=== PATIENT | female | born 1965 | race Caucasian/White ===

== ENCOUNTER → 2016-07-30 | Outpatient (CLI) | payer OTHER ==
[~2016-07-30] VITALS: Ht 170.2 cm; Wt 87.5 kg
[~2016-07-30] MED LIST: ABIL5TAB OR; ABIL5TAB5 PO; Arimidex PO; BENZ2TA PO; Buspar PO; CALCTAB7 PO; CHLO200T OR; CITA20TA4 PO; DEPA250T2 OR; DEPA500T2 PO; Depakote PO; KLON1TAB OR; Klonopin PO; LATA5OPD OU; LIDOCAINE 2% INJ 100 MG/5 ML SDV (FOR ANES.) As Ordered ONE; MULT1TAB10 PO; NEUR800T OR; NS 1,000 ML IV SCH; OYST500T76 OR; PROPOFOL 200 MG/20 ML VIAL As Ordered ONE; REQU2TAB3 OR; VITA400D3 PO; [UNRECOGNIZED DRUG - OTHER]; arimidex
--- NOTE | 2016-07-30 14:03 | ROOR ---
Patient Name: Zaynab Tejada Procedure Date: 07/30/2016 1:44 PM Date of : 1965 Age: 51 Room: LTAC, [facility]IN [facility] Gender: Female Note Status: Finalized Procedure: Colonoscopy Indications: Screening for colorectal malignant neoplasm Providers: Marco FRANCIS MD Referring MD: Jason Parra MD Requesting Provider: Medicines: Monitored Anesthesia Care Complications: No immediate complications. Procedure: Pre-Anesthesia Assessment: - The heart rate, respiratory rate, oxygen saturations, blood pressure, adequacy of pulmonary ventilation, and response to care were monitored throughout the procedure. The Colonoscope was introduced through the anus and advanced to the cecum, identified by appendiceal orifice and ileocecal valve. The colonoscopy was performed without difficulty. The patient tolerated the procedure well. The quality of the bowel preparation was good. Findings: The perianal and digital rectal examinations were normal. A 4 mm polyp was found in the sigmoid colon. The polyp was flat. The polyp was removed with a cold snare. Resection and retrieval were complete. Small Internal Hemorrhoids. The exam was otherwise without abnormality on direct and retroflexion views. Impression: - One 4 mm polyp in the sigmoid colon, removed with a cold snare. Resected and retrieved. - Small Internal Hemorrhoids. - The examination was otherwise normal on direct and retroflexion views. Recommendation: - Telephone endoscopist for pathology results in 2 weeks. - If the pathology report reveals adenomatous tissue, then repeat the colonoscopy for surveillance in 5 years. - If the pathology report indicates hyperplastic polyp, then repeat colonoscopy for screening purposes in 10 years. Marco Francis MD Marco FRANCIS MD 07/30/2016 2:02:45 PM This report has been signed electronically. Number of Addenda: 0 Note Initiated On: 07/30/2016 1:44 PM Estimated Blood Loss: Estimated blood loss: none.
[2016-07-30 14:25] VITALS: BP 125/70
== END | disposition home or self-care (01) ==
LOC: M OPP 11:19
PROVIDERS: ATTEND Internal Medicine Gastroenterology
DX: Z12.11 Encounter for screening for malignant neoplasm of colon (principal); D12.5 Benign neoplasm of sigmoid colon; K64.8 Other hemorrhoids; F31.9 Bipolar disorder, unspecified; Z85.3 Personal history of malignant neoplasm of breast; Z92.3 Personal history of irradiation; Z92.21 Personal history of antineoplastic chemotherapy; Z90.13 Acquired absence of bilateral breasts and nipples; Z80.9 Family history of malignant neoplasm, unspecified; Z88.8 Allergy status to other drugs, medicaments and biological substances; Z88.0 Allergy status to penicillin; Z79.899 Other long term (current) drug therapy

== ENCOUNTER → 2016-11-03 | Outpatient (REF) | payer MEDICAID, OTHER ==
[~2016-11-03] MED LIST changes: -LIDOCAINE 2% INJ 100 MG/5 ML SDV (FOR ANES.) As Ordered ONE; -NS 1,000 ML IV SCH; -PROPOFOL 200 MG/20 ML VIAL As Ordered ONE
[2016-11-03 12:20] LABS: ALBUMIN 3.9 GM/DL (3.2-5.2); ALBUMIN/GLOBULIN RATIO 1.18 (1.00-1.93); ALKALINE PHOSPHATASE 65 U/L (45-117); ALT/SGPT 20 U/L (12-78); ANION GAP 5 MEQ/L (8-16); AST/SGOT 14 U/L (15-37); BILIRUBIN,TOTAL 0.6 MG/DL (0.2-1.0); BLOOD UREA NITROGEN 10 MG/DL (7-18); CARBON DIOXIDE LEVEL 31 MEQ/L (21-32); CHLORIDE LEVEL 98 MEQ/L (98-107); CHOLESTEROL LEVEL 250 MG/DL (<200); CREATININE FOR GFR 0.68 MG/DL (0.55-1.02); GLOMERULAR FILTRATION RATE > 60.0 (>51); GLUCOSE, FASTING 96 MG/DL (70-105); POTASSIUM SERUM 4.4 MEQ/L (3.5-5.1); SODIUM LEVEL 134 MEQ/L (136-145); TOTAL PROTEIN 7.2 GM/DL (6.4-8.2); TRIGLYCERIDES LEVEL 151 MG/DL (<150)
== END ==
LOC: M LABDRAW1 11:04
PROVIDERS: ATTEND Family Medicine
DX: Z00.00 Encounter for general adult medical examination without abnormal findings (principal)

== ENCOUNTER → 2016-11-17 | Outpatient (REF) | payer MEDICAID | LOC: M LAB REF 16:51 | PROVIDERS: ATTEND Internal Medicine Medical Oncology | DX: C50.019 Malignant neoplasm of nipple and areola, unspecified female breast (principal) ==

== ENCOUNTER → 2017-05-27 | Outpatient (REF) | payer OTHER ==
[2017-05-27 18:53] LABS: FERRITIN 58 NG/ML (8-252); IRON (FE) 64 UG/DL (50-170); PERCENT SATURATION 20.4 % (13.2-45.0); TOTAL IRON BINDING CAPACITY 313 UG/DL (250-450)
[2017-05-28 11:48] LABS: CA15-3 ANTIGEN 6.3 U/ML (<32.4)
== END ==
LOC: M LAB REF 17:26
DX: C50.919 Malignant neoplasm of unspecified site of unspecified female breast (principal)
CPT/HCPCS: 83550

== ENCOUNTER 2017-06-08 08:52 | Outpatient (RCR) | payer OTHER | END 2017-06-23 | LOC: M PT 08:52 | DX: Z51.89 Encounter for other specified aftercare (principal); I89.0 Lymphedema, not elsewhere classified | CPT/HCPCS: 97140 ==

== ENCOUNTER 2017-06-24 16:28 | Outpatient (RCR) | payer OTHER | END 2017-07-21 | LOC: M PT 06-25 15:40 | DX: Z51.89 Encounter for other specified aftercare (principal); I89.0 Lymphedema, not elsewhere classified; Z85.3 Personal history of malignant neoplasm of breast | CPT/HCPCS: 97140 ==

== ENCOUNTER → 2017-11-18 | Outpatient (REF) | payer OTHER, MEDICAID ==
[2017-11-18 16:13] LABS: BASO % 0.4 % (0.0-1.0); EOS # 0.1 10^3/uL (0.0-0.50); EOS % 1.7 % (0.0-3.0); HEMATOCRIT 36.3 % (36.0-47.0); HEMOGLOBIN 12.3 g/dl (12.0-15.5); IMMATURE GRANULOCYTE % 0.4 % (0-3.0); LYMPH # 1.9 10^3/uL (1.5-4.5); LYMPH % 36.1 % (24.0-44.0); MEAN CORPUSCULAR HEMOGLOBIN 29.6 pg (27.0-33.0); MEAN CORPUSCULAR HGB CONC 33.9 g/dl (32.0-36.5); MEAN CORPUSCULAR VOLUME 87.3 fl (80.0-96.0); MONO # 0.7 10^3/uL (0.0-0.8); MONO % 12.8 % (0.0-5.0); NEUTROPHILS # 2.6 10^3/uL (1.8-7.7); NEUTROPHILS % 48.6 % (36.0-66.0); PLATELET COUNT, AUTOMATED 190 10^3/uL (150-450); RED BLOOD COUNT 4.16 10^6/uL (4.00-5.40); RED CELL DISTRIBUTION WIDTH 13.1 % (11.5-14.5); WHITE BLOOD COUNT 5.2 10^3/uL (4.0-10.0)
[2017-11-18 16:48] LABS: ALBUMIN 3.6 GM/DL (3.2-5.2); ALBUMIN/GLOBULIN RATIO 0.95 (1.00-1.93); ALKALINE PHOSPHATASE 59 U/L (45-117); ALT/SGPT 23 U/L (12-78); ANION GAP 9 MEQ/L (8-16); AST/SGOT 12 U/L (7-37); BILIRUBIN,TOTAL 0.5 MG/DL (0.2-1.0); BLOOD UREA NITROGEN 16 MG/DL (7-18); CALCIUM LEVEL 8.8 MG/DL (8.5-10.1); CARBON DIOXIDE LEVEL 30 MEQ/L (21-32); CHLORIDE LEVEL 102 MEQ/L (98-107); CREATININE FOR GFR 0.65 MG/DL (0.55-1.30); GLOMERULAR FILTRATION RATE > 60.0 (>51); GLUCOSE, FASTING 106 MG/DL (70-100); POTASSIUM SERUM 4.4 MEQ/L (3.5-5.1); SODIUM LEVEL 141 MEQ/L (136-145); TOTAL PROTEIN 7.4 GM/DL (6.4-8.2); VALPROIC ACID (DEPAKOTE) 71.5 UG/ML (50.0-100.0)
== END ==
LOC: M LABDRAW1 15:49
DX: R53.83 Other fatigue (principal)

== ENCOUNTER → 2017-11-25 | Outpatient (REF) | payer OTHER, MEDICAID ==
[2017-11-25 16:45] LABS: RETIC HEMOGLOBIN EQUIVALENT 34.5 pg (24-36); RETICULOCYTE # 66.1 10^9/L (17-77); RETICULOCYTE % 1.7 % (0.5-1.5)
[2017-11-25 17:05] LABS: FERRITIN 48 NG/ML (8-252); IRON (FE) 77 UG/DL (50-170); PERCENT SATURATION 21.5 % (13.2-45.0); TOTAL IRON BINDING CAPACITY 358 UG/DL (250-450); TOTAL PROTEIN 7.4 GM/DL (6.4-8.2)
[2017-11-26 15:09] LABS: CA15-3 ANTIGEN 6.6 U/ML (<32.4)
[2017-11-30 11:28] LABS: ALBUMIN 4.47 GM/DL (3.29-5.55); ALBUMIN % 60.4 % (55.8-66.1); ALPHA-1-GLOBULIN % 3.2 % (2.9-4.9); ALPHA-1-GLOBULINS 0.24 GM/DL (0.17-0.41); ALPHA-2-GLOBULINS 0.57 GM/DL (0.42-0.99); ALPHA-2-GLOBULINS % 7.7 % (7.1-11.8)
[2017-11-30 11:29] LABS: BETA-1-GLOBULINS 0.52 GM/DL (0.28-0.60); BETA-2-GLOBULINS % 5.4 % (3.2-6.5); GAMMA GLOBULIN % 16.3 % (11.1-18.8); GAMMA GLOBULINS 1.21 GM/DL (0.65-1.58)
== END ==
LOC: M LAB REF 16:27
DX: Z85.3 Personal history of malignant neoplasm of breast (principal)

== ENCOUNTER → 2017-12-06 | Outpatient (REF) | payer OTHER, MEDICAID | LOC: M LAB REF 13:41 | DX: Z85.3 Personal history of malignant neoplasm of breast (principal) | CPT/HCPCS: 82270 ==

== ENCOUNTER → 2017-12-07 | Outpatient (REF) | payer OTHER, MEDICAID | LOC: M LAB REF 13:49 | DX: Z85.3 Personal history of malignant neoplasm of breast (principal) ==

== ENCOUNTER → 2017-12-10 | Outpatient (REF) | payer OTHER, MEDICAID | LOC: M LAB REF 13:19 | DX: Z85.3 Personal history of malignant neoplasm of breast (principal) | CPT/HCPCS: 82270 ==

== ENCOUNTER → 2017-12-28 | Outpatient (REF) | payer OTHER, MEDICAID ==
[2017-12-28 19:06] LABS: BASO % 0.4 % (0.0-1.0); EOS # 0.1 10^3/uL (0.0-0.50); EOS % 1.5 % (0.0-3.0); HEMATOCRIT 35.8 % (36.0-47.0); HEMOGLOBIN 12.1 g/dl (12.0-15.5); IMMATURE GRANULOCYTE % 0.4 % (0-3.0); LYMPH # 1.8 10^3/uL (1.5-4.5); LYMPH % 33.1 % (24.0-44.0); MEAN CORPUSCULAR HEMOGLOBIN 29.5 pg (27.0-33.0); MEAN CORPUSCULAR HGB CONC 33.8 g/dl (32.0-36.5); MEAN CORPUSCULAR VOLUME 87.3 fl (80.0-96.0); MONO # 0.6 10^3/uL (0.0-0.8); MONO % 11.5 % (0.0-5.0); NEUTROPHILS # 2.9 10^3/uL (1.8-7.7); NEUTROPHILS % 53.1 % (36.0-66.0); PLATELET COUNT, AUTOMATED 194 10^3/uL (150-450); RED CELL DISTRIBUTION WIDTH 12.9 % (11.5-14.5); WHITE BLOOD COUNT 5.5 10^3/uL (4.0-10.0)
[2017-12-28 19:40] LABS: ALBUMIN 3.7 GM/DL (3.2-5.2); ALBUMIN/GLOBULIN RATIO 1.06 (1.00-1.93); ALKALINE PHOSPHATASE 55 U/L (45-117); ALT/SGPT 58 U/L (12-78); ANION GAP 7 MEQ/L (8-16); AST/SGOT 30 U/L (7-37); BILIRUBIN,TOTAL 0.4 MG/DL (0.2-1.0); BLOOD UREA NITROGEN 15 MG/DL (7-18); CALCIUM LEVEL 9.2 MG/DL (8.5-10.1); CARBON DIOXIDE LEVEL 31 MEQ/L (21-32); CHLORIDE LEVEL 103 MEQ/L (98-107); CREATININE FOR GFR 0.68 MG/DL (0.55-1.30); GLOMERULAR FILTRATION RATE > 60.0 (>51); GLUCOSE, FASTING 133 MG/DL (70-100); POTASSIUM SERUM 4.4 MEQ/L (3.5-5.1); SODIUM LEVEL 141 MEQ/L (136-145); TOTAL PROTEIN 7.2 GM/DL (6.4-8.2); VALPROIC ACID (DEPAKOTE) 65.3 UG/ML (50.0-100.0)
== END ==
LOC: M LABDRAW1 17:37
DX: R53.83 Other fatigue (principal)

== ENCOUNTER 2018-01-17 15:11 | Outpatient (RCR) | payer OTHER | END 2018-01-21 | LOC: M PT 15:11 | DX: Z51.89 Encounter for other specified aftercare (principal); I89.0 Lymphedema, not elsewhere classified; Z85.3 Personal history of malignant neoplasm of breast | CPT/HCPCS: 97162 ==

== ENCOUNTER → 2018-01-27 | Outpatient (REF) | payer OTHER | LOC: M WUC 13:02 | DX: N39.0 Urinary tract infection, site not specified (principal) ==

== ENCOUNTER → 2018-02-02 | Outpatient (CLI) | payer OTHER | LOC: M SLEEP 19:21 | DX: G47.30 Sleep apnea, unspecified (principal) | CPT/HCPCS: 95810 ==

== ENCOUNTER → 2018-02-10 | Outpatient (CLI) | payer OTHER ==
[2018-02-10 18:29] LABS: FREE T3 2.6 PG/ML (2.2-4.0); FREE T4 0.71 NG/DL (0.76-1.46)
== END ==
LOC: M LAB 16:14
DX: E07.9 Disorder of thyroid, unspecified (principal)
CPT/HCPCS: 84443

== ENCOUNTER → 2018-02-10 | Outpatient (CLI) | payer OTHER | LOC: M LAB 16:04 | DX: R19.4 Change in bowel habit (principal) ==

== ENCOUNTER → 2018-02-11 | Outpatient (CLI) | payer OTHER ==
[~2018-02-11] MED LIST changes: -ABIL5TAB OR; -ABIL5TAB5 PO; -Arimidex PO; -BENZ2TA PO; -Buspar PO; -CALCTAB7 PO; -CHLO200T OR; -CITA20TA4 PO; -DEPA250T2 OR; -DEPA500T2 PO; -Depakote PO; +E-Z-GAS II EFFERVESCENT PACKET (SODIUM BICARB./CITRIC ACID/SIMETHICONE) As Ordered; +E-Z-HD 98% w/w 340GM SUSP BTL As Ordered; +E-Z-PAQUE 96% w/w SUSP 176GM BTL As Ordered; -KLON1TAB OR; -Klonopin PO; -LATA5OPD OU; -MULT1TAB10 PO; -NEUR800T OR; -OYST500T76 OR; -REQU2TAB3 OR; -VITA400D3 PO; -[UNRECOGNIZED DRUG - OTHER]; -arimidex
== END ==
LOC: M RAD 08:58
DX: R13.10 Dysphagia, unspecified (principal); K21.9 Gastro-esophageal reflux disease without esophagitis
CPT/HCPCS: 74220

== ENCOUNTER → 2018-02-15 | Outpatient (REF) | payer OTHER | LOC: M LAB REF 13:38 | DX: R19.4 Change in bowel habit (principal) ==

== ENCOUNTER → 2018-03-09 | Outpatient (CLI) | payer OTHER | LOC: M SLEEP 19:16 | DX: G47.33 Obstructive sleep apnea (adult) (pediatric) (principal) | CPT/HCPCS: 95811 ==

== ENCOUNTER → 2018-03-12 | Outpatient (REF) | payer OTHER | LOC: M LAB 12:37 | DX: A04.72 Enterocolitis due to Clostridium difficile, not specified as recurrent (principal) ==

== ENCOUNTER → 2018-03-22 | Outpatient (CLI) | payer OTHER, MEDICAID ==
[2018-03-22 16:30] LABS: FREE T3 2.5 PG/ML (2.2-4.0); FREE T4 0.58 NG/DL (0.76-1.46)
== END ==
LOC: M LAB 15:27
DX: E07.9 Disorder of thyroid, unspecified (principal)
CPT/HCPCS: 84443

== ENCOUNTER 2018-03-28 11:35 | Day surgery (SDC) | payer OTHER ==
[2018-03-28] MEDS ORDERED: PROPOFOL 200 MG/20 ML VIAL As Ordered (12:49)
[2018-03-28] MEDS ORDERED: LIDOCAINE 2% INJ 100 MG/5 ML SDV (FOR ANES.) As Ordered (12:57)
[2018-03-28] MEDS: NS 1,000 ML IV (14:55)
[2018-03-29] MEDS ORDERED: NS 1,000 ML IV (06:00)
== END 2018-03-28 14:56 | disposition home or self-care (01) ==
LOC: M OPP 11:35
DX: K63.5 Polyp of colon (principal); R13.10 Dysphagia, unspecified; R19.7 Diarrhea, unspecified; E03.9 Hypothyroidism, unspecified; D64.9 Anemia, unspecified; F31.9 Bipolar disorder, unspecified; F41.9 Anxiety disorder, unspecified; G47.30 Sleep apnea, unspecified; H40.9 Unspecified glaucoma; Z79.899 Other long term (current) drug therapy; Z90.49 Acquired absence of other specified parts of digestive tract; Z98.890 Other specified postprocedural states; Z85.3 Personal history of malignant neoplasm of breast; Z92.21 Personal history of antineoplastic chemotherapy; Z92.3 Personal history of irradiation; Z88.8 Allergy status to other drugs, medicaments and biological substances; Z88.0 Allergy status to penicillin; Z88.1 Allergy status to other antibiotic agents; Z90.12 Acquired absence of left breast and nipple; Z83.3 Family history of diabetes mellitus; Z83.79 Family history of other diseases of the digestive system; Z82.49 Family history of ischemic heart disease and other diseases of the circulatory system
CPT/HCPCS: 45385

== ENCOUNTER → 2018-05-05 | Outpatient (CLI) | payer OTHER ==
[2018-05-05 13:42] LABS: FREE T3 2.5 PG/ML (2.2-4.0); FREE T4 0.66 NG/DL (0.76-1.46)
== END ==
LOC: M LAB 12:39
DX: E07.9 Disorder of thyroid, unspecified (principal)
CPT/HCPCS: 84443

== ENCOUNTER 2018-07-11 13:38 | Outpatient (RCR) | payer OTHER ==
[~2018-07-11 13:38] MED LIST changes: +ABIL1TAB11 PO; +ABIL5TAB OR; +Arimidex PO; +BENZ2TAB5 PO; +BRIM0.2S13 OU; +Buspar PO; +CALCTAB7 PO; +CHLO200T OR; +CITA20TA4 PO; +DEPA250T2 OR; +DEPA250T2 PO; +DEPA500T2 PO; +DIFI200T PO; +Depakote PO; -E-Z-GAS II EFFERVESCENT PACKET (SODIUM BICARB./CITRIC ACID/SIMETHICONE) As Ordered; -E-Z-HD 98% w/w 340GM SUSP BTL As Ordered; -E-Z-PAQUE 96% w/w SUSP 176GM BTL As Ordered; +FLUO0.0119 OT; +KLON1TAB OR; +Klonopin PO; +LATA5OPD OU; +LEVO25TA5 PO; +MULT1TAB10 PO; +NEUR800T OR; +OYST500T76 OR; +RANI150C PO; +REQU2TAB3 OR; +VITA-110 PO; +VITA400D PO; +XALA0.007 OU; +[UNRECOGNIZED DRUG - OTHER]; +arimidex
== END 2018-07-21 ==
LOC: M PT 13:38
PROVIDERS: ATTEND Internal Medicine Medical Oncology
DX: I89.0 Lymphedema, not elsewhere classified (principal)

== ENCOUNTER → 2018-08-02 | Outpatient (CLI) | payer OTHER, MEDICAID ==
[2018-08-02 13:05] LABS: FREE T3 2.5 PG/ML (2.2-4.0); FREE T4 0.76 NG/DL (0.76-1.46); THYROID STIMULATING HORMONE 2.35 uIU/ML (0.358-3.740)
== END ==
LOC: M LAB 11:36
PROVIDERS: ATTEND Family Medicine
DX: E07.9 Disorder of thyroid, unspecified (principal)

== ENCOUNTER → 2018-09-08 | Outpatient (CLI) | payer OTHER ==
[~2018-09-08] MED LIST changes: -CITA20TA4 PO; +CITA20TA6 PO; +LATA0.0013 OU; -LATA5OPD OU; +MULTCAP PO; +VITA400T15 PO
--- NOTE | 2018-09-13 11:30 | REP ---
KUB: TWO VIEWS PRESENTED. HISTORY: Sitz marker study. History of a change in bowel habits. Possible constipation. FINDINGS: There is moderate formed stool in the colon without colonic distension. Psoas margins and flank stripes are intact and symmetric. No mass, organomegaly, or pathologic calcification is seen. There are phleboliths in the right pelvis. None of the ingested sitz markers are visualized consistent with their passage. IMPRESSION: No retained sitz markers. Moderate stool. No large or small bowel dilation. Electronically Signed by Marcelino Hannah MD 09/13/2018 08:34 P
== END ==
LOC: M RAD 11:36
PROVIDERS: ATTEND Physician Assistant Medical
DX: R19.8 Other specified symptoms and signs involving the digestive system and abdomen (principal)

== ENCOUNTER → 2018-11-03 | Outpatient (CLI) | payer OTHER, MEDICAID ==
[2018-11-03 15:14] LABS: FREE T4 0.74 NG/DL (0.76-1.46); THYROID STIMULATING HORMONE 0.957 uIU/ML (0.358-3.740)
== END ==
LOC: M LAB 13:52
PROVIDERS: ATTEND Family Medicine
DX: E03.9 Hypothyroidism, unspecified (principal)

== ENCOUNTER → 2019-02-07 | Outpatient (CLI) | payer OTHER, MEDICAID ==
[2019-02-07 09:02] LABS: FREE T3 2.5 PG/ML (2.2-4.0); FREE T4 0.78 NG/DL (0.76-1.46); THYROID STIMULATING HORMONE 3.25 uIU/ML (0.358-3.740)
== END ==
LOC: M LAB 07:59
PROVIDERS: ATTEND Family Medicine
DX: E03.9 Hypothyroidism, unspecified (principal)

== ENCOUNTER → 2019-03-08 | Outpatient (CLI) | payer OTHER ==
[~2019-03-08] MED LIST changes: +ARIP1TAB PO; +COMMENT; +DIFL150T PO; +VENTAER INH
--- NOTE | 2019-03-08 12:35 | REP ---
Two-view chest: 03/08/2019. Indication: Shortness of breath. Flu-like symptoms. Comparison: 04/23/2009. Findings: Left axillary surgical clips are redemonstrated. The lungs are clear. There is no pleural fluid. There is no pneumothorax. The cardiac silhouette and mediastinum are unremarkable. Impression: Clear lungs. Electronically Signed by Dave Zamora DO 03/08/2019 12:26 P
== END ==
LOC: M LRY 11:57
PROVIDERS: ATTEND Nurse Practitioner Family
DX: R68.89 Other general symptoms and signs (principal)

== ENCOUNTER → 2019-03-08 | Outpatient (REF) | payer OTHER | LOC: M SFHCLERA 12:09 | PROVIDERS: ATTEND Nurse Practitioner Family | DX: R68.89 Other general symptoms and signs (principal) ==

== ENCOUNTER 2019-03-10 14:46 | Inpatient (IN) | payer OTHER ==
[2019-03-10] VITALS (15 sets, daily range): BP systolic 98–128; BP diastolic 55–83
[~2019-03-10] VITALS: Ht 177.8 cm; Wt 96.9 kg
[~2019-03-10 14:46] MED LIST changes: -ARIP1TAB PO; -COMMENT; -VENTAER INH
[2019-03-10] MEDS ORDERED: ALBUTEROL SULFATE 2.5 MG/0.5 ML INH NEB SOLN As Ordered ONE (15:05)
[2019-03-10] MEDS ORDERED: IPRATROPIUM 0.5MG/ALBUTEROL 2.5MG INH SOL UD 3ML (DUONEB)(J7620) As Ordered ONE (15:05)
[2019-03-10] MEDS ORDERED: methylPREDNISolone INJ 125 MG/2 ML VIAL (J2930) IV ONE ×2 (15:15→15:45)
[2019-03-10] MEDS ORDERED: NS 1,000 ML IV ONE (15:15)
[2019-03-10 15:24] LABS: ABG BASE EXCESS 2.1 (-2.0-2.0); ABG HCO3 24.4 MEQ/L (22.0-26.0); ABG O2 SATURATION 96.9 % (95.0-99.0); ABG PARTIAL PRESSURE CO2 30.4 mmHg (35.0-45.0); ABG PARTIAL PRESSURE O2 82.7 mmHg (75.0-100.0); ABG STANDARD HCO3 26.3 MEQ/L (22.0-26.0); ABG TOTAL CO2 25.3 MEQ/L (22.0-29.0); ABG pH (ARTERIAL) 7.522 UNITS (7.350-7.450)
[2019-03-10] MEDS ORDERED: CEFEPIME HCL 2 GM in D5W MINI-BAG PLUS 50 ML IV ONE (15:30)
[2019-03-10] MEDS ORDERED: ALBUTEROL SULFATE 2.5 MG/0.5 ML INH NEB SOLN INH ONE (15:30)
[2019-03-10] MEDS ORDERED: IPRATROPIUM 0.5MG/ALBUTEROL 2.5MG INH SOL UD 3ML (DUONEB)(J7620) NEB ONE (15:30)
--- NOTE | 2019-03-10 15:30 | REP ---
Chest x-ray: Portable sitting AP view. History: Dyspnea and cough. Comparison chest x-ray: March 08, 2019. Findings: There is an extensive dense infiltrate in the left inferior hemithorax consistent with a large left lower lobe pneumonia. There are also increased markings and consolidation in the right lower lobe. Pulmonary vasculature is congested. No pleural effusion is seen. Monitoring electrodes are noted. There are surgical clips in the left axillary soft tissues. Impression: Large bilateral lower lobe infiltrates consistent with pneumonia and new from the prior study. Vascular congestion. Electronically Signed by Marcelino Hannah MD 03/10/2019 03:22 P
[2019-03-10 15:42] LABS: BASO % 0.3 % (0.0-1.0); HEMATOCRIT 28.8 % (36.0-47.0); HEMOGLOBIN 10.4 g/dl (12.0-15.5); LYMPH # 1.1 10^3/uL (1.5-5.0); MEAN CORPUSCULAR HEMOGLOBIN 29.6 pg (27.0-33.0); MEAN CORPUSCULAR HGB CONC 36.1 g/dl (32.0-36.5); MEAN CORPUSCULAR VOLUME 82.1 fl (80.0-96.0); MONO # 1.5 10^3/uL (0.0-0.8); MONO % 14.6 % (0.0-5.0); NEUTROPHILS # 7.6 10^3/uL (1.5-8.5); NEUTROPHILS % 73.3 % (36.0-66.0); PLATELET COUNT, AUTOMATED 150 10^3/uL (150-450); RED BLOOD COUNT 3.51 10^6/uL (4.00-5.40); WHITE BLOOD COUNT 10.3 10^3/uL (4.0-10.0)
[2019-03-10 15:52] LABS: INR 1.38; PROTHROMBIN TIME 16.7 SECONDS (11.8-14.0)
[2019-03-10] MEDS ORDERED: IPRATROPIUM 0.5MG/ALBUTEROL 2.5MG INH SOL UD 3ML (DUONEB)(J7620) NEB PRN (16:00)
[2019-03-10 16:01] LABS: INFLUENZA A AMPLIFICATION NEGATIVE (NEGATIVE); INFLUENZA B AMPLIFICATION NEGATIVE (NEGATIVE)
[2019-03-10 16:19] LABS: ALT/SGPT 94 U/L (12-78); BILIRUBIN,DIRECT 0.2 MG/DL (0.0-0.2); BILIRUBIN,TOTAL 0.9 MG/DL (0.2-1.0); BLOOD UREA NITROGEN 7 MG/DL (7-18); CALCIUM LEVEL 7.6 MG/DL (8.5-10.1); CARBON DIOXIDE LEVEL 27 MEQ/L (21-32); CHLORIDE LEVEL 82 MEQ/L (98-107); CK-MB VALUE MASS 7.7 NG/ML (<3.6); CPK CREATINE PHOSPHOKINASE 813 U/L (26-192); CREATININE FOR GFR 0.71 MG/DL (0.55-1.30); GLOMERULAR FILTRATION RATE > 60.0 (>51); GLUCOSE, FASTING 124 MG/DL (70-100); MB/CK RELATIVE INDEX 0.95 (< OR =4); NT-PRO BNP 2594 PG/ML (<125); POTASSIUM SERUM 3.7 MEQ/L (3.5-5.1); SODIUM LEVEL 118 MEQ/L (136-145); THYROID STIMULATING HORMONE 0.653 uIU/ML (0.358-3.740); THYROXINE (T4) 6.1 UG/DL (4.5-12.0); TOTAL PROTEIN 6.7 GM/DL (6.4-8.2); TROPONIN I < 0.02 NG/ML (< 0.10)
--- NOTE | 2019-03-10 16:43 | HPE ---
DATE OF ADMISSION: 03/10/2019 PRIMARY CARE PROVIDER: Jason Parra MD ATTENDING PHYSICIAN: Hospitalist Group. SCIENCE SPECIALIST: Lo Melissa MD CHIEF COMPLAINT: Severe shortness of breath. HISTORY: Zaynab Tejada is a 54-year-old admitted to ICU with severe shortness of breath. She was in her usual state of health until 3 days before admission. She has a upper respiratory infection (URI), was seen in Urgent Care. Had flu screen that was negative. Streptococcus screen that was negative. Chest x-ray was clear. She returned today with increased shortness of breath. She has a chest x-ray that shows large bilateral lower lobe infiltrates, more extensive on the left than the right, a new finding from 2 days ago. Being admitted for further treatment. There are no sick contacts at home. She has had no recent travel, fume exposure or exposure to sick contacts. PAST MEDICAL HISTORY: Suggests some psychiatric disease for which she is on medications summarized below. Hypothyroidism, on levothyroxine therapy and presumptively some asthma as well as gastroesophageal reflux disease (GERD). History of stage II left breast cancer, ER/OR positive 1996. 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 Followed by recurrence of breast cancer left chest wall 2007. Followed by Dr. Aline Lester at [facility]. MEDICATIONS: - Abilify 5 mg daily - benztropine - cogentin 2 mg twice a day - Celexa 20 mg daily - Depakote ER 250 mg three tablets before bedtime - levothyroxine 50 mcg daily - ranitidine 150 mg twice a day - vitamin D 400 units daily - albuterol inhaler 2 puffs four times a day as needed - eye drops. ALLERGIES: DECADRON causes her heart to race. MONISTAT causes burning. PENICILLIN causes fever and diarrhea. VANCOMYCIN causes her neck and chin to itch. THIETHYLPERAZINE causes hallucinations. TETRACYCLINE. REVIEW OF SYSTEMS: As above. Otherwise negative. FAMILY HISTORY: Noncontributory. SOCIAL HISTORY: Nonsmoker. PAST SURGICAL HISTORY: Right salpingo-oophorectomy 2007. D and C 2007. Dermoid cyst removed 2007. Bilateral mastectomies 2007. PHYSICAL EXAMINATION: Vital signs per flow sheet. 02 saturation is 78% on room air upon arrival. General appearance: She looks ill. Apprehensive. Shortness of breath, speaking in short sentences. Neck: No masses. Lungs: Diffuse rhonchi, wheezes, poor air movement on the left. Chest wall shows status post bilateral mastectomy. Heart: Tachycardic. Regular rate and rhythm. No murmur. Abdomen: Soft, nontender. No masses. Extremities: No clubbing, cyanosis, edema. Moves arms and legs with equal strength. LABS: Flu screen pending. Electrolytes are pending. White count 10.3, hemoglobin 10.4. Platelets 150. ABG 7.52/30/82 on 10 liters. Respiratory panel pending. Blood cultures pending. Chest x-ray: Bilateral infiltrates with more on left than right. New from 2 days ago. IMPRESSION: Community acquired pneumonia, severe clinically with hypoxemia. PLAN: 1. Patient will be admitted to the ICU. Case has been discussed with Dr. Lo Melissa of pulmonary who will see her for ICU consultation. Antibiotic therapy is limited by medication allergies. Abrupt change in chest x-ray associated with fever and chills suggestive of influenza and repeat flu screen is pending. I will discuss antibiotic choice with Dr. Melissa. Patient has already received a dose of cefepime 2 grams in the emergency room, Solu-Medrol 125 mg daily. Continue Solu-Medrol 40 mg IV every 12 hours, nebulized bronchodilator has been ordered. DVT prophylaxis has been ordered. 2. Psychiatric disease. Continue current psychotropic medications. 3. Hypothyroidism. Continue current dose of levothyroxine. 4. History of recurrent breast cancer including chest wall recurrence. Followed by [facility], Dr. Lester.
[2019-03-10] MEDS ORDERED: ETOMIDATE INJ 20MG/10ML VIAL IV ONE (16:45)
[2019-03-10] MEDS ORDERED: SUCCINYLCHOLINE INJ 200 MG/10 ML VIAL (J0330) IV ONE (16:45)
[2019-03-10] MEDS ORDERED: PROPOFOL 1,000 MG/100 ML VIAL As Ordered ONE (16:53)
[2019-03-10] MEDS ORDERED: MIDAZOLAM INJ 2 MG/2 ML VIAL (J2250) IV STA (16:58)
[2019-03-10] MEDS ORDERED: MIDAZOLAM INJ 2 MG/2 ML VIAL (J2250) As Ordered ONE (16:59)
[2019-03-10] MEDS ORDERED: LIDOCAINE 2% 5ML JELLY UROJET TOP ONE (17:00)
[2019-03-10] MEDS: PROPOFOL 1,000 MG in IV 1 EA IV SCH ×3 (17:00→23:11)
[2019-03-10] MEDS ORDERED: SODIUM CHLORIDE 0.9% 1000ML IV SCH (17:00)
[2019-03-10] MEDS ORDERED: fentaNYL 100 MCG/2 ML INJECTION (J3010) As Ordered ONE (17:06)
[2019-03-10] MEDS ORDERED: ARIP1TAB PO (17:11)
[2019-03-10] MEDS ORDERED: VENTAER INH (17:11)
[2019-03-10] MEDS ORDERED: COMMENT (17:11)
[2019-03-10] MEDS ORDERED: fentaNYL 100 MCG/2 ML INJECTION (J3010) IV ONE (17:15)
[2019-03-10 17:59] LABS: OSMOLALITY URINE 359 MOSM/KG (500-800)
[2019-03-10 18:22] LABS: SODIUM,RANDOM URINE < 10 MEQ/L
[2019-03-10 18:31] LABS: ABG BASE EXCESS 1.1 (-2.0-2.0); ABG HCO3 25.1 MEQ/L (22.0-26.0); ABG O2 SATURATION 98.4 % (95.0-99.0); ABG PARTIAL PRESSURE CO2 37.5 mmHg (35.0-45.0); ABG PARTIAL PRESSURE O2 113.9 mmHg (75.0-100.0); ABG STANDARD HCO3 25.5 MEQ/L (22.0-26.0); ABG TOTAL CO2 26.3 MEQ/L (22.0-29.0); ABG pH (ARTERIAL) 7.444 UNITS (7.350-7.450)
[2019-03-10 18:39] LABS: VALPROIC ACID (DEPAKOTE) 42.8 UG/ML (50.0-100.0)
[2019-03-10 18:58] LABS: BLOOD UREA NITROGEN 8 MG/DL (7-18); CALCIUM LEVEL 7.3 MG/DL (8.5-10.1); CARBON DIOXIDE LEVEL 25 MEQ/L (21-32); CHLORIDE LEVEL 87 MEQ/L (98-107); CREATININE FOR GFR 0.64 MG/DL (0.55-1.30); FREE T4 0.82 NG/DL (0.76-1.46); GLOMERULAR FILTRATION RATE > 60.0 (>51); GLUCOSE, FASTING 161 MG/DL (70-100); POTASSIUM SERUM 3.5 MEQ/L (3.5-5.1); SODIUM LEVEL 121 MEQ/L (136-145); THYROID STIMULATING HORMONE 0.446 uIU/ML (0.358-3.740)
--- NOTE | 2019-03-10 19:01 | RO ---
DATE OF PROCEDURE: 03/10/2019 ENDOTRACHEAL INTUBATION PROCEDURE: INDICATION: Acute hypoxemic respiratory failure. PREPROCEDURE DIAGNOSIS: Pneumonia and hypoxemic respiratory failure. POSTPROCEDURE DIAGNOSIS: Pneumonia and hypoxemic respiratory failure. ATTENDING PHYSICIAN: Dr. Melissa. CONSENT: Consent was obtained from the patient verbally prior to the procedure. Due to the emergent nature of the procedure no written consent was obtained. INDICATIONS: Risks and benefits were discussed. PROCEDURE SUMMARY: Patient was placed on a manager cardiac cath including continuous pulse oximetry. Rapid C1 intubation was conducted. The patient received 30 mg of etomidate for induction and 140 mg of succinylcholine for adequate paralysis. Using a GlideScope and a size 8 endotracheal tube with stylette the patient was intubated on the first pass attempt. The stylette was removed and balloon cuff was inflated. An appropriate endotracheal tube position was confirmed by direct visualization of vocal cord passage, fogging of the tube, and symmetric breath sounds. The tube was secured at 23 cm at the tips. Post intubation chest x-ray showed ET tube in good position.
[2019-03-10] MEDS: fentaNYL CITRATE 1,000 MCG in NS 80 ML IV SCH (19:08)
--- NOTE | 2019-03-10 19:08 | RO ---
DATE OF PROCEDURE: 03/10/2019 PROCEDURE: Internal jugular central line. INDICATION: Vascular access. PREPROCEDURE DIAGNOSIS: Acute respiratory failure. POSTPROCEDURE DIAGNOSIS: Acute respiratory failure. ATTENDING PHYSICIAN: Lo Melissa MD CONSENT: Due to the emergent nature of the procedure, consent was implied. The procedure was discussed with the patient verbally prior to being performed. PROCEDURE SUMMARY Central line insertion practice form was completed by independent windows server architect. A time-out was performed. Full sterile technique was maintained throughout procedure including surgical cap, mask, protective eye wear, full gown and sterile gloves. The patient was placed in Trendelenburg position. The right neck region was prepped using chlorhexidine scrub and draped in sterile fashion using a full drape and sterile probe cover employed. The right internal jugular vein was identified using ultrasound. Anesthesia was achieved by using 1% lidocaine. Using real-time ultrasound guidance the introducer needle was inserted into the right internal jugular vein under direct ultrasound visualization. Venous blood was drawn. The syringe was removed and the guidewire was answered into the introducer needle. The introducer needle was exchanged over the guidewire. A small incision was made at skin surface with a scalpel and the dilator was exchanged over the guidewire. After appropriate dilation was obtained, the dilator was exchanged over the wire for a triple lumen central venous catheter. The wire was removed and the catheter was sutured in place at 18 cm. A sterile chlorhexidine impregnated dressing was placed over the catheter insertion site. The patient tolerated she tolerated the procedure without any hemodynamic compromise. At time of procedure completion all ports aspirated and flushed properly. Postprocedure chest x-ray showed the triple lumen in satisfactory position with no pneumothorax.
[2019-03-10 19:15] LABS: OSMOLALITY SERUM 248 MOSM/KG (275-295)
--- NOTE | 2019-03-10 19:33 | REP ---
Portable chest x-ray: Single view. 05:29 p.m. film. History: Intubated patient. Tube placement. Comparison chest x-ray March 10, 2019 03:11 p.m. film. Findings: Endotracheal tube is seen in good position at the level of the transverse aorta. An NG tube enters left upper quadrant. A right internal jugular central venous line is seen in place with its tip in the expected location of the superior vena cava. Oxygen delivery tubing is noted. There are surgical clips and projecting in the left axillary soft tissues. There is an extensive infiltrate in the left lung obscuring left hemidiaphragm and the descending aorta consistent with extensive consolidation in the left lower lobe. There are increased markings in the right lower lobe as well and diffuse interstitial edema pattern is present. There is no evidence of pneumothorax. Electronically Signed by Marcelino Hannah MD 03/10/2019 07:24 P
[2019-03-10] MEDS: IPRATROPIUM 0.5MG/ALBUTEROL 2.5MG INH SOL UD 3ML (DUONEB)(J7620) NEB SCH (19:41)
[2019-03-10 19:43] LABS: BLOOD UREA NITROGEN 9 MG/DL (7-18); CARBON DIOXIDE LEVEL 25 MEQ/L (21-32); CHLORIDE LEVEL 84 MEQ/L (98-107); CREATININE FOR GFR 0.68 MG/DL (0.55-1.30); GLOMERULAR FILTRATION RATE > 60.0 (>51); GLUCOSE, FASTING 167 MG/DL (70-100); POTASSIUM SERUM 3.6 MEQ/L (3.5-5.1); SODIUM LEVEL 118 MEQ/L (136-145)
--- NOTE | 2019-03-10 19:47 | CR ---
DATE OF CONSULTATION: 03/10/2019 CHIEF COMPLAINT: Shortness of breath and hypoxia. HISTORY OF PRESENT ILLNESS: Ms. Tejada is a 54-year-old female with a past medical history of bipolar disorder, hypothyroidism, breast cancer status post bilateral mastectomies, seizure disorder, MARLEN on CPAP who presented with complaints of increased shortness of breath and confusion. History was obtained from the chart and from other collateral information as well as some from the patient. She is tachypneic and is having difficulty being able to give a clear history. The patient reportedly was in her usual state of health until 3 days prior to admission. She had presented with symptoms of subjective chills, coughing, productive of yellow-brown sputum and shortness of breath. She was seen initially 2 days ago at Urgent Care where she had rapid flu screen and strep screen which was reportedly negative. She also had a chest x-ray done at that time which did not show any opacities or infiltrates. The patient was given nebulizer treatments and discharged. She continued to have worsening shortness of breath over the next 2 days and this morning was noted to be more lethargic. She was brought in to the ED where she was found to be hypoxic and tachypneic satting in the 70 to 80s on room air. The patient denied any sick contacts or recent travel. In the ED she was placed on a non-rebreather initially with improvement in her oxygenation. The patient then started desatting while on the non-rebreather and she became more tachypneic. She was given IV fluids with 1 liter normal saline bolus as well as cefepime for antibiotics in the ED. The patient was initially trialed on VapoTherm for 15 minutes. Her oxygenation did improve. However, she became more restless and tachypneic. The patient was then placed on C-PAP and later BiPap. With the noninvasive positive pressure ventilation however, she continue to be significantly tachypneic with a respiratory rate increasing into the 40s. The patient was also complaining of more agitation and feeling more short of breath. She was unable to speak in complete sentences. Given her respiratory distress and worsening tachypnea, the decision was made to intubate the patient for her acute hypoxemic respiratory failure. The patient and her family were in agreement. She was given a etomidate 30 mg and succinylcholine 140 mg for rapid sequence intubation. The patient was intubated with the first pass attempt with a GlideScope with a size 8 ET tube. Post intubation the patient was started on propofol for sedation. She did also require Versed 2 mg IV push and fentanyl 50 mcg IV push for agitation. The patient has limited peripheral access given her bilateral mastectomy history and history of lymphedema in her left arm. She had a right IJ triple lumen placed for vascular access. The patient was transferred to the ICU for further management. PAST MEDICAL HISTORY/SURGICAL HISTORY: bipolar disorder, hypothyroidism, history of breast cancer bilaterally status post bilateral mastectomy and chemotherapy radiation with chronic lymphedema in the left arm, hysterectomy with bilateral BSO history of C diff, MARLEN on C-PAP at 9 cm of water, seizure disorder. HOME MEDICATIONS: Abilify, benztropine, Cogentin, Celexa, Depakote, Synthroid ranitidine and vitamin D albuterol as needed. ALLERGIES: Decadron causes palpitations, Monistat causes burning, penicillin causes fever and diarrhea, vancomycin causes itching of her neck and chin, tetracycline. REVIEW OF SYSTEMS: As above limited due to the patient's respiratory distress. FAMILY HISTORY: Mother with history of diabetes, Crohn disease and heart disease. Father with a history of Lewy body dementia, COPD. Brother with history of schizophrenia. Sister with history of ovarian cancer and thyroid disease. SOCIAL HISTORY: The patient is a nonsmoker. Denies any other illicit drug use. PHYSICAL EXAMINATION: T-max 99.9, pulse 120, blood pressure 155/70, O2 sat 98% on the C-PAP / BiPap at 60% FiO2. General: The patient is sitting in the stretcher appears to be in respiratory distress, is tachypneic and using accessory muscles for respirations with abdominal breathing. She is unable to speak in complete sentences. She appears agitated and in some discomfort as well. HEENT: Normocephalic, atraumatic. Pupils reactive to light bilaterally. Mucous membranes are moist. Neck is supple. Trachea is midline. No palpable adenopathy. Cardiovascular: Tachycardiac, regular rate and rhythm. Unable to appreciate any murmurs. Lungs: Diffuse coarse rhonchorous breath sounds bilaterally with no wheezing. Diminished breath sounds on the left base. Abdomen is obese, appears mildly distended and nontender to palpation. Lower extremities: There is no lower extremity edema bilaterally. She has chronic lymphedema in the left arm. LABORATORY DATA: WBC 10.3, hemoglobin 10.4, platelets 150. Chemistry sodium 118, potassium 3.7, chloride 82, bicarb 27, BUN 7, creatinine 0.71, glucose is 124, lactic acid was 2.1, AST, ALT is 87 and 94, alk phos 62, troponin was negative CPK 813, BNP 2594, TSH 0.653. ABG on admission pH was 7.522, pCO2 of 30.4, pO2 of 82.7 on a non-rebreather. Micro respiratory panel was positive for Mycoplasma pneumonia Influenza A and B negative IMAGES: Chest x-ray compared to previous x-ray done 2 days ago. There is new extensive dense infiltrate in the left lung with a large left lower lobe pneumonia. There is some increased markings and consolidation in the right lower lobe with some increased pulmonary vascular congestion. ASSESSMENT/PLAN: The patient is a 54-year-old female with a past medical history of bipolar disorder, hypothyroidism, C diff, MARLEN on C-PAP breast cancer status post bilateral mastectomies who presented with complaints of increased shortness of breath, productive cough and chills for the past few days. The patient was initially seen in Urgent Care and had a negative influenza and rapid strep. Her chest x-ray at that time did not show any focal opacities. The patient had worsening symptoms and new lethargy and presented to the ED in acute hypoxemic respiratory failure. The patient's chest x-ray shows consolidations bilaterally, left more than the right with evidence of increased pulmonary vascular congestion. The patient was noted to have increasing respiratory distress and tachypnea and was intubated in the ED for her acute hypoxemic respiratory failure secondary to pneumonia with possible development of ARDS. NEURO: History of bipolar disorder. Presented with altered mental status likely metabolic encephalopathy due to her hypoxemic respiratory failure as well as acute hyponatremia. - Patient is on sedation while intubated with propofol and a fentanyl drip for analgesia. Would keep patient sedated with James score of 5 with her severe respiratory failure. - Continue with the patient's home psychiatric medications. Will check a Depakote level. - Given the medications will need to monitor EKG for a QTC prolongation. CARDIOVASCULAR: The patient has no previous history of any cardiac disease. On her chest x-ray she did have evidence of new pulmonary vascular congestion in her BNP was elevated. The patient appears to be maintaining a blood pressure currently. She does have evidence of lactic acidosis likely secondary to her respiratory distress and from severe sepsis. Will repeat lactic acid after patient received her liter bolus in the ED. - Continue to monitor blood pressures to maintain a MAP above 65. - will follow up a repeat lactic acid - will check an echocardiogram given some possible pulmonary vascular congestion and increased BMP. May have reduced EF in the setting of her sepsis. - Patient had a right IJ triple lumen placed for vascular access as she has bilateral mastectomies and chronic lymphedema in the left arm with poor vascular access. PULMONARY: The patient has a history of sleep apnea. Presented with complaints of worsening shortness of breath and productive cough for the past few days. She was found to have bilateral opacities left worse than the right as well as with leukocytosis and symptoms consistent with pneumonia. Likely community-acquired pneumonia, respiratory panel PCR was positive for Mycoplasma pneumonia. The patient was noted to have worsening hypoxemic respiratory failure with increasing respiratory distress and tachypnea. She was intubated for her acute hypoxemic respiratory failure and possible ARDS. - Continue patient on vent on mechanical ventilation with PRVC with settings of 400 / 12 / 15 and 80%. Will continue to wean down her FIO2 as tolerated. The patient will likely need higher PEEP for her ARDS and severe pneumonia with significant shunting. - Will repeat an ABG after intubation. - Will continue to monitor with daily ABGs and chest x-rays while intubated. - The patient was started on steroids for her severe community-acquired pneumonia. Will continue with 40 mg every 12. - continue with DuoNebs every 6 hours - will check a sputum culture and followup blood cultures. Will also check Legionella given her CAP and hyponatremia. Legionella is in the differential. - Will continue with cefepime for broad spectrum antibiotics and add Avelox for atypical coverage given the positive Mycoplasma pneumonia. Will follow up the results of her sputum culture for further de-escalation of antibiotics. - Will check a procalcitonin and continue to trend to help with de-escalation of her antibiotics. - will continue to monitor and adjust ventilator settings as needed. Will attempt to maintain plateau pressures less than 30. Given her severe respiratory failure. The patient may require paralytics if she has significant vent dyssynchrony. RENAL/ENDO: Patient was found to have acute hyponatremia. Possibly SIADH in the setting of her pneumonia versus hypovolumia. Will followup with her urine sodium and urine osmolarity. She was given 1 liter normal saline bolus in the ED. Will follow up a repeat chemistry. She will need frequent chemistry checks and would correct her sodium more than 8 mEq in a 24-hour period. - Will followup electrolytes and replete as needed - Will monitor her renal function. She has a Langley placed for accurate ins and outs measurements. - CPK was mildly elevated. Will repeat another CPK to trend. - Will monitor fingerstick glucose and will start sliding scale coverage as needed. GI: The patient had OG tube placed to low wall intermittent suction. She was noted have some abdominal distension post intubation. The patient has a history of C diff but denied any recent abdominal complaints. Will continue to monitor. - The patient had mildly elevated transaminitis. Will repeat LFTs in the morning and to continue to monitor. DVT prophylaxis with Lovenox. FULL CODE. Total critical care time spent not including any procedures 2 hours and 45 minutes. MTDD
[2019-03-10 20:30] LABS: OSMOLALITY URINE 234 MOSM/KG (500-800)
[2019-03-10 20:47] LABS: SODIUM,RANDOM URINE < 10 MEQ/L
[2019-03-10] MEDS: MOXIFLOXACIN HCL 400 MG in IV 1 EA IV SCH (20:55)
[2019-03-10] MEDS ORDERED: DIVALPROEX 250MG *ER* TAB PO SCH (21:00)
[2019-03-10] MEDS ORDERED: SODIUM CHLORIDE 3% 500 ML IV SCH (21:15)
[2019-03-10] MEDS: BENZTROPINE 2 MG TAB PO SCH (21:30)
[2019-03-10] MEDS: CHLORHEXIDINE GLUCONATE 0.12 % 15ML UDC (PERIDEX ORAL RINSE) MT SCH (21:30)
[2019-03-10] MEDS: methylPREDNISolone INJ 40 MG/1 ML VIAL (J2920) IV SCH (21:30)
[2019-03-10] MEDS: VALPROATE SOD INJ 750 MG in D5W 50 ML IV SCH (22:31)
[2019-03-11] VITALS (37 sets, daily range): BP systolic 79–143; BP diastolic 42–77; O2SAT 97
[2019-03-11] MEDS: CEFEPIME HCL 2 GM in D5W MINI-BAG PLUS 50 ML IV SCH ×3 (00:41→16:42)
[2019-03-11 01:20] LABS: BLOOD UREA NITROGEN 10 MG/DL (7-18); CARBON DIOXIDE LEVEL 26 MEQ/L (21-32); CHLORIDE LEVEL 88 MEQ/L (98-107); CREATININE FOR GFR 0.64 MG/DL (0.55-1.30); GLOMERULAR FILTRATION RATE > 60.0 (>51); GLUCOSE, FASTING 228 MG/DL (70-100); POTASSIUM SERUM 3.2 MEQ/L (3.5-5.1); SODIUM LEVEL 122 MEQ/L (136-145)
[2019-03-11] MEDS ORDERED: DEXTROSE 50% 50 ML SYRINGE IV PRN (01:30)
[2019-03-11] MEDS ORDERED: MAG SULF 1GM/100ML (MAG RUN) 1 GM in IV 1 EA IV ONE (01:30)
[2019-03-11] MEDS ORDERED: GLUCAGON FOR INJ 1 MG VIAL (J1610) SC PRN (01:30)
[2019-03-11] MEDS ORDERED: GLUCOSE 4 GM CHEW TABLET PO PRN (01:30)
[2019-03-11] MEDS: IPRATROPIUM 0.5MG/ALBUTEROL 2.5MG INH SOL UD 3ML (DUONEB)(J7620) NEB SCH ×4 (01:36→20:22)
[2019-03-11] MEDS: KCL 20MEQ IN 100ML SWI (KRUN) 20 MEQ in IV 1 EA IV SCH ×4 (01:55→03:09)
[2019-03-11] MEDS: HumaLOG INSULIN (NovoLOG) PER UNIT SC SCH ×4 (01:55→18:31)
[2019-03-11] MEDS: PROPOFOL 1,000 MG in IV 1 EA IV SCH ×6 (01:56→21:54)
[2019-03-11] MEDS: LEVOTHYROXINE 50MCG TABLET (0.05MG) PO SCH (05:30)
[2019-03-11 06:01] LABS: ABG BASE EXCESS -1.7 (-2.0-2.0); ABG O2 SATURATION 95.9 % (95.0-99.0); ABG PARTIAL PRESSURE CO2 38.9 mmHg (35.0-45.0); ABG TOTAL CO2 24.2 MEQ/L (22.0-29.0)
[2019-03-11 06:17] LABS: HEMATOCRIT 27.5 % (36.0-47.0); HEMOGLOBIN 9.7 g/dl (12.0-15.5); MEAN CORPUSCULAR HEMOGLOBIN 29.9 pg (27.0-33.0); MEAN CORPUSCULAR HGB CONC 35.3 g/dl (32.0-36.5); MEAN CORPUSCULAR VOLUME 84.9 fl (80.0-96.0); PLATELET COUNT, AUTOMATED 121 10^3/uL (150-450); RED BLOOD COUNT 3.24 10^6/uL (4.00-5.40); WHITE BLOOD COUNT 7.6 10^3/uL (4.0-10.0)
[2019-03-11 06:43] LABS: ALBUMIN 2.5 GM/DL (3.2-5.2); ALT/SGPT 111 U/L (12-78); BILIRUBIN,DIRECT 0.2 MG/DL (0.0-0.2); BILIRUBIN,TOTAL 0.6 MG/DL (0.2-1.0); BLOOD UREA NITROGEN 10 MG/DL (7-18); CALCIUM LEVEL 7.3 MG/DL (8.5-10.1); CARBON DIOXIDE LEVEL 26 MEQ/L (21-32); CHLORIDE LEVEL 89 MEQ/L (98-107); CPK CREATINE PHOSPHOKINASE 684 U/L (26-192); CREATININE FOR GFR 0.73 MG/DL (0.55-1.30); GLOMERULAR FILTRATION RATE > 60.0 (>51); GLUCOSE, FASTING 246 MG/DL (70-100); POTASSIUM SERUM 3.7 MEQ/L (3.5-5.1); SODIUM LEVEL 123 MEQ/L (136-145); TOTAL PROTEIN 6.1 GM/DL (6.4-8.2)
--- NOTE | 2019-03-11 07:05 | ECGEPIP ---
[facility] Test Date: 2019-03-11 Pat Name: MEREDITH MEJIA Department: Room: [place] [address] Gender: Female Talent Consultant: MARIO : 1965 Requested By: KING ENGEL Order Number: [id number] Reading MD: Aminta Kirby Measurements Intervals [place] Rate: 71 P: 60 [place]: 133 QRS: 78 QRSD: 108 T: 57 QT: 473 QTc: 514 Interpretive Statements SINUS RHYTHM RATE SLOWER ST DEVIATION AND MODERATE T-WAVE ABNORMALITY, CONSIDER ANTERIOR ISCHEMIA NEW C/W 03/10/19 1523 RIGHT VENT COND DELAY LAE Electronically Signed on 03-11-2019 7:05:24 EDT by Aminta Kirby
--- NOTE | 2019-03-11 07:29 | ECGEPIP ---
[facility] - ED Test Date: 2019-03-10 Pat Name: MEREDITH MEJIA Department: Room: [place] [address] Gender: Female Print Shop Helper: sanjana : 1965 Requested By: Todd Roach Order Number: [id number] Reading MD: Richard Milligan Measurements Intervals [place] Rate: 108 P: 65 CO: 134 QRS: 82 QRSD: 97 T: 3 QT: 330 QTc: 442 Interpretive Statements SINUS TACHYCARDIA POSSIBLE LEFT ATRIAL ENLARGEMENT INCOMPLETE RIGHT BUNDLE BRANCH BLOCK NONSPECIFIC ST & T-WAVE ABNORMALITY NO PRIORS FOR COMPARISON Electronically Signed on 03-11-2019 7:28:43 EDT by Richard Milligan
--- NOTE | 2019-03-11 08:19 | REP ---
Portable chest x-ray: Single view. History: Intubated patient. Comparison study: March 10, 2019. Findings: Endotracheal tube remains in good position at the level of the proximal clavicles. A nasogastric tube enters left upper quadrant. Right internal jugular central venous line is again seen in the expected location of the superior vena cava. Monitoring electrodes are noted. This there is homogeneous opacity in the left lower lobe with air bronchograms consistent with atelectasis. There is blunting of the left lateral pleural angle suggesting some degree of left pleural effusion as well. There is slightly improved aeration in the remaining left upper lobe although perihilar consolidation persists. Some increased markings are seen in the right base as well consistent with infiltrate in this location. No new infiltrate is seen Electronically Signed by Marcelino Hannah MD 03/11/2019 08:09 A
[2019-03-11] MEDS ORDERED: SUCCINYLCHOLINE 100 MG/5 ML SYRINGE (J0330) ONE (09:23)
[2019-03-11] MEDS ORDERED: ETOMIDATE INJ 20MG/10ML VIAL ONE (09:23)
[2019-03-11] MEDS: PANTOPRAZOLE 40MG INJ (PROTONIX) (C9113) IV SCH (09:28)
[2019-03-11] MEDS: methylPREDNISolone INJ 40 MG/1 ML VIAL (J2920) IV SCH ×2 (09:28→20:39)
[2019-03-11] MEDS: CitaloPRAM (CeleXA) 20 MG TAB PO SCH ×2 (09:29→10:41)
[2019-03-11] MEDS: BENZTROPINE 2 MG TAB PO SCH ×3 (09:29→20:38)
[2019-03-11] MEDS: ENOXAPARIN 40 MG/0.4 ML SYRINGE (J1650) SC SCH (09:29)
[2019-03-11] MEDS ORDERED: NS 1,000 ML IV ONE (09:45)
[2019-03-11 10:50] LABS: BLOOD UREA NITROGEN 11 MG/DL (7-18); CALCIUM LEVEL 7.7 MG/DL (8.5-10.1); CARBON DIOXIDE LEVEL 27 MEQ/L (21-32); CHLORIDE LEVEL 90 MEQ/L (98-107); CREATININE FOR GFR 0.79 MG/DL (0.55-1.30); GLOMERULAR FILTRATION RATE > 60.0 (>51); GLUCOSE, FASTING 228 MG/DL (70-100); POTASSIUM SERUM 3.5 MEQ/L (3.5-5.1); SODIUM LEVEL 124 MEQ/L (136-145)
--- NOTE | 2019-03-11 11:17 | CCN ---
DATE OF SERVICE: 03/11/2019 CRITICAL CARE TIME: 9:30 a.m. to 10:33 a.m. this excludes all procedures. Patient remains on mechanical ventilation for pneumonia. She has hyponatremia slowly correcting with low urine sodium, suspicion for hypovolemic/hyponatremia due to the fact that her sodium was actually 137 on 03/01/2019. She had some soft blood pressures this morning and I prescribed a liter of normal saline. Right internal jugular (IJ) is in place. Patient remains on pressure regulated volume control, tidal volumes 400, respiratory rate of 15 with an FiO2 of 0.50 and a PEEP 10 maintaining an oxygen saturation of 96%. She remains hypothermic based on rectal thermometer although does appears diaphoretic at times. She has had no arrhythmias overnight, remains in sinus rhythm. Has not yet started feeding on low intermittent suction. Mild hyperglycemia this morning with an added sliding scale insulin. Patient was started on moxifloxacin and cefepime yesterday. There was concern about mycoplasma pneumonia as this showed up on PCR. Sputum so far had no abnormal organisms. Urine legionella is pending as patient has hyponatremia and there is concern that this could be contributing to the hyponatremia. PHYSICAL EXAMINATION: Temperature 95.9, pulse 71, respiratory rate 15, blood pressure 100/53, mean arterial pressure of 69, oxygen saturation of 96% on 0.50 FiO2. GENERAL: Awake, on sedation vacation and sedation reinitiated. HEENT: Sclera clear and anicteric. Pupils equal and reactive to light. Mucous membranes are moist. She tracks with her eyes. Moves extremities normally. Tongue is midline. NECK: Is supple. No jugular distention or mass. Right internal jugular (IJ) is in place without surrounding erythema or exudate. LYMPH: No cervical, supraclavicular, axillary adenopathy. CARDIAC: Regular S1, S2 without audible murmur, rub, or gallop. No elevated jugular venous pulse (JVP). No peripheral edema. PULMONARY: Decreased breath sounds at the left base, otherwise clear to auscultation, a few scattered rhonchi. No expiratory wheeze. No prolongation of the expiratory phase. No dullness to percussion. ABDOMEN: Soft, nontender, nondistended. There is no discernable hepatosplenomegaly. There are no masses or hernia. Bowel sounds are normoactive. EXTREMITIES: No cyanosis, clubbing, or edema. SKIN: Pale without rash, jaundice, or bruising. MUSCULOSKELETAL: Patient moving all extremities appropriately when testing for myoclonus patient flexes against my foot. DTRs are normal at patella and brachioradialis bilaterally. No tremor. LABORATORY EVALUATION: Shows a sodium of 123 which is up from 118 at 1800 yesterday. Potassium 3.7, chloride is 89, bicarbonate 26 with a BUN of 10, creatinine 0.73, glucose of 246, white blood cell count of 7.6, hemoglobin indicates an anemia that is normocytic at 9.7, platelet count of 121. Arterial blood gas shows a pH of 7.36, pCO2 of 36, p02 of 81, urine sodium is low at 10. Chest x-ray from this morning shows endotracheal tube is slightly high at the level of the clavicle. Right IJ is in place with the tip of the catheter in the superior vena cava. There continues to be infiltrate predominantly in the left base, some in the left upper lobe with air bronchograms. No evidence of pleural effusion on the right. Left costophrenic angle is blunted. There is rotation of the film. No evidence of pneumothorax and hilda from previous mastectomy are present. IMPRESSION: 1. Pneumonia with respiratory failure, left sided, thought to be mycoplasma and treated currently with moxifloxacin and cefepime. There is some concern with the hyponatremia that there could be legionella. After more speciation culture data obtained we will likely deescalate to just moxifloxacin. 2. Severe hyponatremia. Likely secondary to dehydration, hypovolumic/hyponatremia. Patient responding of fluids. Patient had a normal sodium on the 30 of January. There was no other sodium measured between that time and her admission. There is only minimal hyperglycemia which would not account for this degree of hyponatremia. We will be careful with rapid correction, however, I believe that she does not need fluid this morning and despite there being a CVP of 15 her blood pressure is soft and with the use of sedation in the form of fentanyl becomes to the point of requiring either pressor therapy or fluids. Urine output had decreased some also therefore I recommended 1 liter of normal saline with close monitoring of sodium to prevent overcorrection. There is no evidence of seizure activity. At this point and time, there is no indication to change her current medication regimen. 3. Hypothermia. Likely related to severity of infection. 4. Mild elevation without elevated total bilirubin likely secondary to acute illness. There is a possible thought of legionella pneumonia which is known to potentially cause elevated liver enzymes. 5. Hypoalbuminemia. We will initiate tube feeds today. 6. Hyperglycemia. Patient placed on sliding scale insulin. It does not appear that the patient has a history of diabetes. 7. Deep venous thrombosis (DVT) prophylaxis with Lovenox. 8. Gastrointestinal (GI) prophylaxis with Protonix.
--- NOTE | 2019-03-11 12:07 | IPN ---
DATE: 03/11/2019 The patient remains intubated and ventilated. Remained hypothermic overnight at 95.2, currently with a bear hugger. She is currently unresponsive and heavily sedated. Urine output has been adequate. Blood pressure with a mean arterial pressure greater than 70, currently on no vasopressor. She is continued on cefepime and Avelox. Sputum culture grew out mycoplasma. Blood cultures are negative so far. Sputum culture is not finalized. Right internal jugular venous central line catheter. PHYSICAL EXAMINATION: VITAL SIGNS: Temperature 95.9, pulse 71, respiratory rate 18, blood pressure 100/53, 96% ventilated, FiO2 of 50%. Input 1705, output 1205, positive 505. Current weight is 101.8 kg. From midnight, input of 410 and output of 415, negative 4.5 liters. GENERAL: The patient is heavily sedated. Nasogastric tube and endotracheal tube in place. She is unresponsive and not following commands. Unable to assess for jugular venous distention (JVD). LUNGS: Clear to auscultation. HEART: S1, S2. Sinus rhythm. ABDOMEN: Soft, nontender, nondistended. Positive bowel sounds. EXTREMITIES: No cyanosis, clubbing or pitting edema. LABORATORY DATA: White count 7.6, hemoglobin 9.7, hematocrit 27, platelet count 121. Sodium 123, potassium 3.7, chloride 18, bicarbonate 26, BUN 10, creatinine 0.73, glucose of 246, total bilirubin 0.6, direct bilirubin 0.2, AST 74, ALT 111. IMAGING STUDIES: Chest x-ray on 03/10/2019 showed extensive infiltrate in the left lung obscuring the left hemidiaphragm, descending aorta, consistent with extensive consolidation in the left lower lobe. Increased markings through the right lower lobe, diffuse interstitial edema is present. There is no evidence of pneumothorax. ASSESSMENT AND PLAN: This is a 54-year-old female with a history of bipolar, hypothyroidism, breast cancer, status post bilateral mastectomy, seizure disorder, obstructive sleep apnea on CPAP, presented with altered mental status and respiratory distress for the past 3 days with subjective fevers, chills, coughing and yellow sputum. Seen at urgent care with negative flu and strep screen. Chest x-ray was negative at that time. The patient became more lethargic and was brought into the emergency department and was found to be hypoxic at 70% on room air. Despite nonrebreather, the patient had continued hypoxia requiring intubation after Vapotherm failed and BiPAP. ACTIVE ISSUES: 1. Acute hypoxic respiratory failure secondary to extensive pneumonia with mycoplasma. She is currently ventilated, managed by semiconductor processor. 2. Community acquired pneumonia with mycoplasma. Currently on moxifloxacin intravenously and cefepime. Sputum culture is pending. Respiratory panel with mycoplasma pneumonia. Two sets of blood cultures are still pending. 3. Possible acute respiratory distress syndrome with infiltrates on chest x-ray along with consolidation. Currently managed by revenue stamper, ventilated. 4. Hyponatremia. Most likely related to her pneumonia. Lowest sodium was 118, goal of no more than 10 to 12 mEq every 24 hours by 1843 this evening, currently at 123. 5. History of bipolar disorder, on intravenous valproic acid. 6. History of breast cancer, status post bilateral mastectomy and chemotherapy, radiation and chronic lymphedema in the left arm. 7. Obstructive sleep apnea. On chronic CPAP at home at 9 cm, currently ventilated. 8. History of seizure disorder. On valproic acid. 9. Diet. Nothing by mouth status due to respiratory distress. 10. Deep vein thrombosis (DVT) prophylaxis with Lovenox subcutaneously. 11. Hypothyroidism. On Synthroid. MTDD
[2019-03-11] MEDS: CHLORHEXIDINE GLUCONATE 0.12 % 15ML UDC (PERIDEX ORAL RINSE) MT SCH ×2 (12:25→20:38)
[2019-03-11] MEDS ORDERED: NOREPINEPHRINE 4 MG/4 ML AMP As Ordered ONE (13:07)
[2019-03-11] MEDS: NOREPINEPHRINE BITARTRATE 8 MG in D5W 492 ML IV SCH (13:19)
--- NOTE | 2019-03-11 14:30 | ECHO ---
DATE OF STUDY: 03/11/2019 REFERRING PHYSICIAN: Dr. Melissa INDICATION: Dyspnea HEIGHT: 168 cm. WEIGHT: 101 kg. DIMENSIONS: IVS: 0.8 LV: 4.3 LVPW: 1.0 LA: 3.3 Aorta: 3.1 RV: .2 Ascending aorta: 2.7 Mitral E wave velocity: 112 A wave: 71 E prime septal: 7.8 E prime lateral: 8.3 IVC: 2.6 FINDINGS: The study is of acceptable technical quality. The patient is on a ventilator. Underlying rhythm is sinus. Left ventricle is normal size and systolic function, I estimate ejection fraction (EF) around 60-65%. No segmental wall motion abnormalities are noted. Right ventricle is also normal size and systolic function. Same applies to both atria. Aortic, mitral and tricuspid valves appear normal. Pulmonic valve was not well seen. Trivial pericardial effusion is noted. Inferior vena cava is dilated and there is no appreciable collapse with respiration. This is in the setting of the patient being intubated and ventilated. Aortic root, aortic arch and visualized segment of abdominal aorta appear normal. Doppler interrogation reveals competent aortic and mitral valves. There is trace tricuspid insufficiency. Calculated pulmonary artery pressure is at least in high 30s. Mitral inflow pattern and tissue Doppler imaging of mitral annulus reveal probably normal diastolic function even though tissue Doppler velocities are mildly reduced. CONCLUSIONS: 1. Study is of acceptable technical quality. 2. Normal LV size, systolic function and probably also normal diastolic function. 3. No significant valvular disease. 4. Normal size right ventricle. 5. Likely high central venous pressure (CVP) and at least mild and probably moderate pulmonary hypertension. COMMENT: Subacute bacterial endocarditis (SBE) prophylaxis is not recommended.
[2019-03-11 17:22] LABS: BLOOD UREA NITROGEN 12 MG/DL (7-18); CALCIUM LEVEL 7.4 MG/DL (8.5-10.1); CARBON DIOXIDE LEVEL 26 MEQ/L (21-32); CHLORIDE LEVEL 93 MEQ/L (98-107); CREATININE FOR GFR 0.75 MG/DL (0.55-1.30); GLOMERULAR FILTRATION RATE > 60.0 (>51); GLUCOSE, FASTING 219 MG/DL (70-100); POTASSIUM SERUM 3.7 MEQ/L (3.5-5.1); SODIUM LEVEL 126 MEQ/L (136-145)
[2019-03-11] MEDS: fentaNYL CITRATE 1,000 MCG in NS 80 ML IV SCH (18:55)
[2019-03-11] MEDS: VALPROATE SOD INJ 750 MG in D5W 50 ML IV SCH (20:38)
[2019-03-11] MEDS: MOXIFLOXACIN HCL 400 MG in IV 1 EA IV SCH (20:38)
[2019-03-11 23:27] LABS: BLOOD UREA NITROGEN 14 MG/DL (7-18); CALCIUM LEVEL 7.5 MG/DL (8.5-10.1); CARBON DIOXIDE LEVEL 24 MEQ/L (21-32); CHLORIDE LEVEL 95 MEQ/L (98-107); CREATININE FOR GFR 0.72 MG/DL (0.55-1.30); GLOMERULAR FILTRATION RATE > 60.0 (>51); GLUCOSE, FASTING 234 MG/DL (70-100); POTASSIUM SERUM 4.1 MEQ/L (3.5-5.1); SODIUM LEVEL 128 MEQ/L (136-145)
[2019-03-12] VITALS (23 sets, daily range): BP systolic 92–149; BP diastolic 50–75; O2SAT 96
[2019-03-12] MEDS: IPRATROPIUM 0.5MG/ALBUTEROL 2.5MG INH SOL UD 3ML (DUONEB)(J7620) NEB SCH ×4 (01:33→19:52)
[2019-03-12] MEDS: PROPOFOL 1,000 MG in IV 1 EA IV SCH ×7 (01:40→22:35)
[2019-03-12] MEDS: NOREPINEPHRINE BITARTRATE 8 MG in D5W 492 ML IV SCH (03:10)
[2019-03-12 05:11] LABS: HEMATOCRIT 27.9 % (36.0-47.0); HEMOGLOBIN 9.7 g/dl (12.0-15.5); MEAN CORPUSCULAR HEMOGLOBIN 30.2 pg (27.0-33.0); MEAN CORPUSCULAR HGB CONC 34.8 g/dl (32.0-36.5); MEAN CORPUSCULAR VOLUME 86.9 fl (80.0-96.0); PLATELET COUNT, AUTOMATED 179 10^3/uL (150-450); RED BLOOD COUNT 3.21 10^6/uL (4.00-5.40); WHITE BLOOD COUNT 15.2 10^3/uL (4.0-10.0)
[2019-03-12 05:28] LABS: BLOOD UREA NITROGEN 15 MG/DL (7-18); CALCIUM LEVEL 7.6 MG/DL (8.5-10.1); CARBON DIOXIDE LEVEL 25 MEQ/L (21-32); CHLORIDE LEVEL 96 MEQ/L (98-107); CREATININE FOR GFR 0.76 MG/DL (0.55-1.30); GLOMERULAR FILTRATION RATE > 60.0 (>51); GLUCOSE, FASTING 226 MG/DL (70-100); POTASSIUM SERUM 4.3 MEQ/L (3.5-5.1); SODIUM LEVEL 130 MEQ/L (136-145)
[2019-03-12] MEDS: LEVOTHYROXINE 50MCG TABLET (0.05MG) PO SCH (05:36)
[2019-03-12] MEDS: HumaLOG INSULIN (NovoLOG) PER UNIT SC SCH ×4 (05:36→18:22)
[2019-03-12 05:46] LABS: ABG BASE EXCESS -1.8 (-2.0-2.0); ABG HCO3 22.6 MEQ/L (22.0-26.0); ABG O2 SATURATION 96.4 % (95.0-99.0); ABG PARTIAL PRESSURE CO2 36.6 mmHg (35.0-45.0); ABG PARTIAL PRESSURE O2 86.8 mmHg (75.0-100.0); ABG TOTAL CO2 23.7 MEQ/L (22.0-29.0); ABG pH (ARTERIAL) 7.408 UNITS (7.350-7.450)
[2019-03-12] MEDS: CEFEPIME HCL 2 GM in D5W MINI-BAG PLUS 50 ML IV SCH ×5 (07:40→23:58)
[2019-03-12] MEDS: PANTOPRAZOLE 40MG INJ (PROTONIX) (C9113) IV SCH (08:01)
[2019-03-12] MEDS: methylPREDNISolone INJ 40 MG/1 ML VIAL (J2920) IV SCH ×2 (08:02→20:59)
[2019-03-12] MEDS: CitaloPRAM (CeleXA) 20 MG TAB PO SCH (08:02)
[2019-03-12] MEDS: CHLORHEXIDINE GLUCONATE 0.12 % 15ML UDC (PERIDEX ORAL RINSE) MT SCH ×2 (08:02→20:59)
[2019-03-12] MEDS: ENOXAPARIN 40 MG/0.4 ML SYRINGE (J1650) SC SCH (08:02)
[2019-03-12] MEDS: BENZTROPINE 2 MG TAB PO SCH ×2 (08:02→20:59)
--- NOTE | 2019-03-12 08:36 | REP ---
Portable chest x-ray: Semi-erect AP view. History: Intubated patient. Comparison study: March 11, 2019. Findings: Endotracheal tube remains in good position at the level of proximal clavicles. An NG tube enters left upper quadrant of the abdomen. There is a right internal jugular central venous line again noted in place unchanged. Extensive consolidation is seen throughout the left lower lobe to some degree left upper lobe unchanged. The left hemidiaphragm and descending aorta are obscured. There are air bronchograms as before. There is some increased opacity in the right base medially. These findings are unchanged. Electronically Signed by Marcelino Hannah MD 03/12/2019 08:28 A
--- NOTE | 2019-03-12 10:39 | CCN ---
DATE OF SERVICE: 03/12/2019 CRITICAL CARE TIME: 52 minutes, this excludes all procedures. Zaynab remains on mechanical ventilation. Tube feeds were started yesterday having some high residuals occasionally to the 170 range. I have decided not add Reglan because of the antipsychotic medications that she is currently on. I did turn down her FiO2 and PEEP at bedside and she remained 95%. No arrhythmias overnight. PHYSICAL EXAMINATION: Temperature 97.0, pulse is 68, respiratory rate is 18, blood pressure 100/50, MAP of 67. Oxygen saturation 95% on 0.50 FiO2 with PEEP 10. Again at bedside switched to 0.040 with PEEP at 8 maintaining oxygen saturation 94-95%. Intake and output overnight she is net positive 1.5 liters but has good urine output this morning. General: Sedated on mechanical ventilation, wakes up on sedation vacation with appropriate movements. HEENT: Sclerae clear and anicteric. Pupils equal, react to light. Mucous membranes moist without lesions. Endotracheal tube is in place. Neck is supple. No tracheal deviation or mass. Lymph nodes: No cervical, supraclavicular, or axillary adenopathy. Cardiac: Regular S1-S2 without audible murmur, rub, or gallop. No elevated jugular venous pulse (JVP). No peripheral edema. Pulmonary: Decreased breath sounds at the bases, otherwise clear to auscultation. No rales, rhonchi or wheezes. Abdomen: Soft, nontender, nondistended. No hepatosplenomegaly. No masses or hernia. Bowel sounds are present but hypoactive. No discernible hepatosplenomegaly. Skin: No rash, jaundice or bruising. Neuro: No asterixis, tremor. Laboratory evaluation shows a white blood cell count of 15.2, hemoglobin 9.7, platelet count of 179. Sodium is up to 130 compared to yesterday. At this time there is about a six point change. Potassium is 4.38, chloride 96, bicarb of 25 with a BUN of 15 over 0.76, glucose is 226. Arterial blood gas shows a pH of 7.41, pCO2 of 37, pAO2 of 87. Chest x-ray shows continued infiltrate in the left lower lobe without any right pleural effusion. The left costophrenic angle is blunted. The right IJ is in place with the tip of the catheter in the superior vena cava (SVC). Endotracheal tube is in good position approximately 3.7 cm above the malena. Cardiac silhouette appears normal. There is no evidence pneumothorax. IMPRESSION: 1. Respiratory failure with pneumonia. We will continue to wean oxygen and PEEP. I suspect that the patient may be ready for an extubation trial tomorrow and therefore we will place on spontaneous breathing trial tomorrow as long as her oxygen requirements have decreased. Again sputum cultures have not shown anything as far as organisms, PCR was positive for mycoplasma. Legionella antigen is still pending. 2. Hyponatremia, thought to be secondary to hypovolemic hyponatremia responding to fluids. Correction the patient on my last note it says a normal sodium on the January 30 that was the 01 of March. Her central venous pressure remains normal to high therefore no further fluid has been administered today. 3. Hypothermia likely related severity of infection. Thyroid studies free T4 was normal. 4. Hypoalbuminemia initiating tube feeds. 5. Hyperglycemia. On scale insulin. 6. Deep venous thrombosis (DVT) prophylaxis with Lovenox. 7. Gastrointestinal (GI) prophylaxis with Protonix. Overall the patient remains critically ill. We will plan on trial of extubation tomorrow if she passes spontaneous breathing trial and if her oxygen requirements are low enough to attempt this. Critical care time as mentioned above, this excludes all procedures.
[2019-03-12 11:11] LABS: BLOOD UREA NITROGEN 16 MG/DL (7-18); CALCIUM LEVEL 7.8 MG/DL (8.5-10.1); CARBON DIOXIDE LEVEL 27 MEQ/L (21-32); CHLORIDE LEVEL 96 MEQ/L (98-107); CREATININE FOR GFR 0.88 MG/DL (0.55-1.30); GLOMERULAR FILTRATION RATE > 60.0 (>51); GLUCOSE, FASTING 204 MG/DL (70-100); POTASSIUM SERUM 4.3 MEQ/L (3.5-5.1); SODIUM LEVEL 130 MEQ/L (136-145)
--- NOTE | 2019-03-12 15:16 | IPN ---
DATE: 04/12/2019 The patient has been placed on Levophed overnight due to pulse in 60, less sedated this morning. Is able to withdraw to pain and suctioning and follow commands. Able to open her mouth. She remains intubated, afebrile overnight. Temperature 97, pulse 67, respiratory rate 16 to 20. Blood pressure 100/50, 96% FiO2 of 50% on ventilator. Input and output: Input 2875 and output 1345, positive 1530, current weight is 1345. The patient has some residual through the tube feedings yesterday and they had to be held. GENERAL: The patient is lightly sedated. Able to follow commands. She is lethargic but able to open her mouth when instructed to do so. Orogastric tube and endotracheal tube in place. Central line clean, nonerythematous and nontender. LUNGS: Diminished with mucoid montano discharge through the endotracheal tube. Coarse rhonchi bilaterally. HEART: S1, S2. Sinus rhythm. ABDOMEN: Soft, nontender, nondistended. EXTREMITIES: No edema. White count 15, hemoglobin 9.7, hematocrit 27, platelet count 179. Sodium 130, potassium 4.6, chloride 96, bicarbonate 25, BUN 15, creatinine 0.76, glucose of 226. Microbiology: Mycoplasma on respiratory panel. Two sets of blood cultures pending. Sputum culture is pending. Chest x-ray on 03/11/2019 showed endotracheal tube, nasogastric tube, right internal jugular venous line at SVC. Left lower lobe opacity consistent with atelectasis. Left pleural effusion. Improved left upper lobe with perihilar consolidation persisting. Right basilar infiltrate. ASSESSMENT AND PLAN: This is a 54-year-old female with a history of bipolar, hypothyroidism, breast cancer status post bilateral mastectomy, seizure disorder, obstructive sleep apnea on continuous positive airway pressure (CPAP) who presented with a 3-day history of acute encephalopathy with subjective fever, chills, cough with yellow sputum. Seen in urgent care with negative flu and Streptococcus screen. Chest x-ray was negative at that time. She became more lethargic and was brought into the emergency room and was found to be hypoxic. Despite nonrebreather and Vapotherm, failed on BiPAP and was subsequently intubated. ACUTE ISSUES: 1. Acute hypoxic respiratory failure secondary to extensive pneumonia with mycoplasma, currently ventilated and managed by french folder. Overnight, the patient developed hypotension. Currently on vasopressor, Levophed. The patient's white count slightly increased to 15.2. She is currently on cefepime and Avelox. 2. Septic shock requiring vasopressor therapy with intravenous Levophed. Currently on drip with mean arterial pressure greater than 70. Titrate off if the patient has no repeat hypotension. The patient is positive balance of 1530 overnight. Perfusing well with no signs of cyanosis. 3. Mycoplasma pneumoniae. Currently on Avelox IV and cefepime. Sputum culture is not finalized. Respiratory panel showed mycoplasma pneumoniae. Blood cultures are still negative. 4. Hyponatremia. Currently with 130 sodium. Appears to be stable at this time. Continue with tube feedings. 5. Bipolar disorder. On IV valproic acid. 6. History of breast cancer. Status post bilateral mastectomies and chemotherapy with chronic lymphedema of the left arm. 7. Obstructive sleep apnea. Currently ventilated. 8. History of seizure disorder. Valproic acid. 9. Diet. Nothing by mouth with tube feedings. 10. Deep vein thrombosis (DVT) prophylaxis with subcutaneous Lovenox.
[2019-03-12] MEDS: fentaNYL CITRATE 1,000 MCG in NS 80 ML IV SCH (18:23)
[2019-03-12] MEDS: MOXIFLOXACIN HCL 400 MG in IV 1 EA IV SCH (20:07)
[2019-03-12] MEDS: VALPROATE SOD INJ 750 MG in D5W 50 ML IV SCH (20:59)
[2019-03-13] VITALS (22 sets, daily range): BP systolic 98–149; BP diastolic 50–83; O2SAT 95
[2019-03-13] MEDS: HumaLOG INSULIN (NovoLOG) PER UNIT SC SCH ×5 (00:04→20:51)
[2019-03-13] MEDS: PROPOFOL 1,000 MG in IV 1 EA IV SCH ×4 (00:15→07:35)
[2019-03-13] MEDS: IPRATROPIUM 0.5MG/ALBUTEROL 2.5MG INH SOL UD 3ML (DUONEB)(J7620) NEB SCH ×4 (01:10→20:02)
[2019-03-13] MEDS: LEVOTHYROXINE 50MCG TABLET (0.05MG) PO SCH (05:09)
[2019-03-13 05:31] LABS: HEMATOCRIT 27.2 % (36.0-47.0); HEMOGLOBIN 9.1 g/dl (12.0-15.5); MEAN CORPUSCULAR HEMOGLOBIN 29.5 pg (27.0-33.0); MEAN CORPUSCULAR HGB CONC 33.5 g/dl (32.0-36.5); MEAN CORPUSCULAR VOLUME 88.3 fl (80.0-96.0); PLATELET COUNT, AUTOMATED 193 10^3/uL (150-450); RED BLOOD COUNT 3.08 10^6/uL (4.00-5.40); WHITE BLOOD COUNT 15.9 10^3/uL (4.0-10.0)
[2019-03-13 05:38] LABS: ABG BASE EXCESS 0.8 (-2.0-2.0); ABG HCO3 25.4 MEQ/L (22.0-26.0); ABG O2 SATURATION 95.8 % (95.0-99.0); ABG PARTIAL PRESSURE CO2 40.7 mmHg (35.0-45.0); ABG PARTIAL PRESSURE O2 80.8 mmHg (75.0-100.0); ABG STANDARD HCO3 25.1 MEQ/L (22.0-26.0); ABG TOTAL CO2 26.6 MEQ/L (22.0-29.0); ABG pH (ARTERIAL) 7.413 UNITS (7.350-7.450)
[2019-03-13 05:52] LABS: BLOOD UREA NITROGEN 15 MG/DL (7-18); CARBON DIOXIDE LEVEL 27 MEQ/L (21-32); CHLORIDE LEVEL 101 MEQ/L (98-107); CREATININE FOR GFR 0.76 MG/DL (0.55-1.30); GLOMERULAR FILTRATION RATE > 60.0 (>51); GLUCOSE, FASTING 260 MG/DL (70-100); POTASSIUM SERUM 4.4 MEQ/L (3.5-5.1); SODIUM LEVEL 134 MEQ/L (136-145)
[2019-03-13] MEDS ORDERED: PROPOFOL 1,000 MG/100 ML VIAL As Ordered ONE (07:31)
--- NOTE | 2019-03-13 08:57 | CCN ---
DATE OF SERVICE: 03/13/2019 Mrs. Tejada is seen in the intensive care unit (ICU). She is currently on mechanical ventilation. A trial of extubation is being planned. The patient's propofol will be turned off. Nursing notes no significant issues overnight. The patient has been afebrile. Currently on volume control with a tidal volume of 400, a rate of 15, PEEP of 8, FiO2 of 40. She is currently on volume control mechanical ventilation. PHYSICAL EXAMINATION: Vital signs: Temperature is 97.4, pulse 92, blood pressure 98/54, respiratory rate 17, oxygen saturation is 97%. Ventilator settings as noted above. General: The patient is sedate. Once the propofol was turned off she did start to become a little more animated. It appears that she is following commands. HEENT: Head is normocephalic, atraumatic. Sclerae is clear. Pupils are equal and reactive to light. Moist mucous membranes. Endotracheal tube is in place. Neck: The neck is supple. No cervical lymphadenopathy. No jugular venous distention (JVD). Trachea is midline. Heart: Regular rate and rhythm. S1, S2. No obvious murmurs. Pulmonary: Clear to auscultation bilaterally. No wheezes, rales, rhonchi, or crackles appreciated. Abdomen: Positive bowel sounds. Soft. Nontender. No rebound or guarding. Skin: The patient does have an erythematous area on the right anterior lateral knee approximately 2-3 cm. LABORATORY DATA: WBC 15.9, hemoglobin 9.1, hematocrit 27.2, platelets 193, pH 7.4, pCO2 40, pO2 81. Sodium 134, potassium 4.4, chloride 101, carbon dioxide 27, BUN 15, creatinine 0.76, glucose 260, calcium 8.0. Sputum culture is pending. blood cultures show no growth after 48 hours times two. Respiratory virus panel was positive for mycoplasma pneumoniae. Chest x-ray continues to show persistent left-sided infiltrate. Endotracheal tube positioning is good. ASSESSMENT AND PLAN: 1. Respiratory failure secondary to Mycoplasma pneumoniae. The patient is on moxifloxacin and cefepime. We will discontinue the cefepime and continue moxifloxacin. A trial of extubation is being planned. The patient's propofol was turned off and feeding tube was stopped. We will continue to monitor to see if the patient can be extubated. Currently, she is getting Solu-Medrol 40 mg twice a day. If she is able to be successfully extubated, then would change that to prednisone 30 mg daily for 3 days, then 20 mg daily for 3 days, then 10 mg daily for 3 days, then stop. We will need to see if she can be extubated first before that plan can be initiated. She has nebs ordered. 2. Leukocytosis. There is no definite signs of infection source. Leukocytosis could be a steroid effect. We will continue to monitor closely. 3. Anemia, possibly dilutional. 4. Hyponatremia. Probably secondary to hypovolemia, hyponatremia. Sodium levels have improved today to 134. We will continue to monitor. 5. Hyperglycemia. This could be steroid induced; however, the patient's blood sugars continue to be elevated. She may need to be followed and evaluated for the possible development of diabetes. Critical care time excluding all procedures was 45 minutes.
--- NOTE | 2019-03-13 10:06 | REP ---
PORTABLE CHEST: AP portable view of the chest is performed and compared to a prior study of 03/12/2019. Bibasilar lung opacities are essentially unchanged, seen to a greater extent on the left than on the right. Heart and mediastinum are unchanged. Right central venous catheter, endotracheal tube, and nasogastric tube are unchanged. IMPRESSION: Stable exam. Electronically Signed by Kana Rodgers MD 03/14/2019 05:27 P
[2019-03-13] MEDS: PANTOPRAZOLE 40MG INJ (PROTONIX) (C9113) IV SCH (10:32)
[2019-03-13] MEDS: ENOXAPARIN 40 MG/0.4 ML SYRINGE (J1650) SC SCH (10:32)
[2019-03-13] MEDS: predniSONE 10 MG TAB PO SCH (10:32)
[2019-03-13] MEDS: CitaloPRAM (CeleXA) 20 MG TAB PO SCH (10:32)
--- NOTE | 2019-03-13 10:55 | IPNPDOC ---
Text Note Date of Service The patient was seen on 03/13/19. NOTE She was seen and examined by me this morning. The patient is off sedation and possible weaning has been initiated. No overnight events. GENERAL: Able to follow commands. She is lethargic but able to open her mouth when instructed to do so. Orogastric tube and endotracheal tube in place. Central line clean, nonerythematous and nontender. LUNGS: Diminished with mucoid montano discharge through the endotracheal tube. Coarse rhonchi bilaterally. HEART: S1, S2. Sinus rhythm. ABDOMEN: Soft, nontender, nondistended. EXTREMITIES: No edema. Microbiology: Mycoplasma on respiratory panel. Two sets of blood cultures pending negative. Sputum cultures pending Chest x-ray on 03/11/2019 showed endotracheal tube, nasogastric tube, right internal jugular venous line at SVC. Left lower lobe opacity consistent with atelectasis. Left pleural effusion. Improved left upper lobe with perihilar consolidation persisting. Right basilar infiltrate. ASSESSMENT AND PLAN: This is a 54-year-old female with a history of bipolar, hypothyroidism, breast cancer status post bilateral mastectomy, seizure disorder, obstructive sleep apnea on continuous positive airway pressure (CPAP) who presented with a 3-day history of acute encephalopathy with subjective fever, chills, cough with yellow sputum. Seen in urgent care with negative flu and Streptococcus screen. Chest x-ray was negative at that time. She became more lethargic and was brought into the emergency room and was found to be hypoxic. Despite nonrebreather and Vapotherm, failed on BiPAP and was subsequently intubated. ACUTE ISSUES: 1. Acute hypoxic respiratory failure secondary to extensive pneumonia with mycoplasma, currently ventilated and managed by edge beader. Possible weaning trial today She is currently on cefepime and Avelox. 2. Septic shock requiring vasopressor therapy . Now improved . Currently off Levofed drip 3. Mycoplasma pneumoniae. Currently on Avelox IV and cefepime. Sputum culture is not finalized. Respiratory panel showed mycoplasma pneumoniae. Blood cultures are still negative. 4. Hyponatremia. Improving Appears to be stable at this time. Continue with tube feedings. 5. Bipolar disorder. On IV valproic acid. 6. History of breast cancer. Status post bilateral mastectomies and chemotherapy with chronic lymphedema of the left arm. 7. Obstructive sleep apnea. Currently ventilated. 8. History of seizure disorder. Valproic acid. 9. Diet. Nothing by mouth with tube feedings. 10. Deep vein thrombosis (DVT) prophylaxis with subcutaneous Lovenox. VS,Fishbone, I+O VS, Fishbone, I+O Laboratory Tests 03/13/19 05:11 Vital Signs Date Time Temp Pulse Resp B/P (MAP) Pulse Ox O2 Delivery O2 Flow Rate FiO2 03/13/19 08:00 40 03/13/19 08:00 97.5 80 16 98/54 (69) 94 Ventilator 03/10/19 16:05 35.0 I&O- Last 24 Hours up to 6 AM 03/13/19 06:00 Intake Total 2143.5 ml Output Total 2830 ml Balance -686.5 ml JOSEPH NEWTON MD Mar 13, 2019 10:55
[2019-03-13] MEDS: BENZTROPINE 2 MG TAB PO SCH ×2 (11:16→20:07)
[2019-03-13] MEDS ORDERED: ACETAMINOPHEN TAB 650MG DOSE (2X325MG) PO PRN (16:00)
[2019-03-13] MEDS ORDERED: GLUCAGON FOR INJ 1 MG VIAL (J1610) SC PRN (16:30)
[2019-03-13] MEDS ORDERED: DEXTROSE 50% 50 ML SYRINGE IV PRN (16:30)
[2019-03-13] MEDS: MOXIFLOXACIN HCL 400 MG in IV 1 EA IV SCH (19:29)
[2019-03-13] MEDS: VALPROATE SOD INJ 750 MG in D5W 50 ML IV SCH (20:08)
[2019-03-13] MEDS: EYE OU SCH (20:08)
[2019-03-13] MEDS: BRIMONIDINE 0.2% OU SCH (20:08)
[2019-03-13] MEDS: LATANOPROST 0.005% OPHTH SOLN 2.5 ML OU SCH (20:08)
[2019-03-14] VITALS (10 sets, daily range): BP systolic 122–141; BP diastolic 65–76
[2019-03-14] MEDS: IPRATROPIUM 0.5MG/ALBUTEROL 2.5MG INH SOL UD 3ML (DUONEB)(J7620) NEB SCH ×4 (01:25→19:52)
[2019-03-14 03:57] LABS: HEMATOCRIT 28.5 % (36.0-47.0); HEMOGLOBIN 9.6 g/dl (12.0-15.5); MEAN CORPUSCULAR HEMOGLOBIN 29.9 pg (27.0-33.0); MEAN CORPUSCULAR HGB CONC 33.7 g/dl (32.0-36.5); MEAN CORPUSCULAR VOLUME 88.8 fl (80.0-96.0); PLATELET COUNT, AUTOMATED 222 10^3/uL (150-450); RED BLOOD COUNT 3.21 10^6/uL (4.00-5.40)
[2019-03-14 04:21] LABS: BLOOD UREA NITROGEN 11 MG/DL (7-18); CARBON DIOXIDE LEVEL 33 MEQ/L (21-32); CHLORIDE LEVEL 103 MEQ/L (98-107); CREATININE FOR GFR 0.56 MG/DL (0.55-1.30); GLOMERULAR FILTRATION RATE > 60.0 (>51); GLUCOSE, FASTING 108 MG/DL (70-100); POTASSIUM SERUM 3.6 MEQ/L (3.5-5.1); SODIUM LEVEL 140 MEQ/L (136-145)
[2019-03-14] MEDS: LEVOTHYROXINE 50MCG TABLET (0.05MG) PO SCH (05:31)
[2019-03-14] MEDS: HumaLOG INSULIN (NovoLOG) PER UNIT SC SCH ×4 (07:30→20:13)
[2019-03-14] MEDS: predniSONE 10 MG TAB PO SCH (08:19)
[2019-03-14] MEDS: BENZTROPINE 2 MG TAB PO SCH ×2 (08:19→20:12)
[2019-03-14] MEDS: PANTOPRAZOLE 40MG INJ (PROTONIX) (C9113) IV SCH (08:19)
[2019-03-14] MEDS: CitaloPRAM (CeleXA) 20 MG TAB PO SCH (08:19)
[2019-03-14] MEDS: ENOXAPARIN 40 MG/0.4 ML SYRINGE (J1650) SC SCH (08:20)
[2019-03-14] MEDS: EYE OU SCH ×2 (09:04→20:13)
[2019-03-14] MEDS: BRIMONIDINE 0.2% OU SCH ×2 (09:04→20:13)
--- NOTE | 2019-03-14 10:13 | CCN ---
DATE OF SERVICE: 03/14/2019 Ms. Tejada is seen in the intensive care unit (ICU). She was extubated successfully yesterday and is doing well. She is tolerating room air with good oxygen saturations. She denies fevers or chills. She is feeling progressively better. PHYSICAL EXAMINATION: Vital signs: Temperature 97.2, pulse 83, respiratory rate 21, blood pressure is 122/66, pulse oximetry 94% on room air. General: The patient is alert and oriented. She speaks in complete sentences. HEENT: Head is normocephalic, atraumatic. Moist mucous membranes. Pupils reactive to light. Neck is supple. No cervical lymphadenopathy. No jugular venous distention (JVD). Trachea is midline. Cardio: Regular rate and rhythm. S1, S2, no murmurs. Pulmonary: The patient does have some scattered expiratory wheezing on left base. No accessory muscle use. Abdomen: Positive bowel sounds, soft, nontender. No rebound or guarding. Extremities: No clubbing, cyanosis, or edema. LABS: WBC 17.0, hemoglobin 9.6, hematocrit 28.5, platelets 222. Sodium 140, potassium 3.6, chloride 103, carbon dioxide 33, BUN 11, creatinine 0.56, glucose 108, calcium 8.0. ASSESSMENT/PLAN: 1. Respiratory failure secondary to Mycoplasma pneumoniae. The patient is slowly improving. She was extubated yesterday and is on room air today with good oxygen saturations. She remains on moxifloxacin. She was changed yesterday from intravenous (IV) Solu-Medrol to oral prednisone and is on a prednisone taper. Plan will be to establish a new peripheral IV access and discontinue the central line. Once peripheral IV access is obtained, she can be transferred to progressive care unit (PCU). Pulmonary will sign off at this time but will be available if needed. Our recommendations would be, patient has a chest x-ray in 2 weeks to ensure resolution of pneumonia. This can be ordered and followed by her primary care provider in outpatient followup. 2. Leukocytosis. It is felt that leukocytosis is due to steroid effect. Would advise continued monitoring. 3. Hyponatremia. Secondary to hypovolemia hyponatremia. Sodium levels have improved. Continue to monitor. 4. Hyperglycemia. This could be steroid induced. Should continue to be followed and consider evaluation for possible diabetes if continues. As noted, pulmonary will sign off at this time.
--- NOTE | 2019-03-14 10:35 | IPNPDOC ---
Text Note Date of Service The patient was seen on 03/14/19. NOTE She was seen and examined by me this morning. S/P extubation on 03/13/19. No overnight events. GENERAL: Able to follow commands. having breakfast Central line clean, nonerythematous and nontender. LUNGS: Diminished Coarse rhonchi bilaterally. HEART: S1, S2. Sinus rhythm. ABDOMEN: Soft, nontender, nondistended. EXTREMITIES: No edema. Neuro: Normal Microbiology: Mycoplasma on respiratory panel. Two sets of blood cultures pending negative. Chest x-ray on 03/11/2019 showed endotracheal tube, nasogastric tube, right internal jugular venous line at SVC. Left lower lobe opacity consistent with atelectasis. Left pleural effusion. Improved left upper lobe with perihilar consolidation persisting. Right basilar infiltrate. ASSESSMENT AND PLAN: This is a 54-year-old female with a history of bipolar, hypothyroidism, breast cancer status post bilateral mastectomy, seizure disorder, obstructive sleep apnea on continuous positive airway pressure (CPAP) who presented with a 3-day history of acute encephalopathy with subjective fever, chills, cough with yellow sputum. Seen in urgent care with negative flu and Streptococcus screen. Chest x-ray was negative at that time. She became more lethargic and was brought into the emergency room and was found to be hypoxic. Despite nonrebreather and Vapotherm, failed on BiPAP and was subsequently intubated and now exbubated on 03/13/19 ACUTE ISSUES: 1. Acute hypoxic respiratory failure secondary to extensive pneumonia with mycoplasma, She is currently on cefepime and Avelox. Taper steriods and abx as below 2. Septic shock requiring vasopressor therapy . Now improved . Currently off Levofed drip 3. Mycoplasma pneumoniae. Currently on Avelox IV and cefepime. Sputum culture is not finalized. Respiratory panel showed mycoplasma pneumoniae. Blood cultures are still negative. 4. Hyponatremia. Improving Appears to be stable at this time. Continue with tube feedings. 5. Bipolar disorder. On IV valproic acid. 6. History of breast cancer. Status post bilateral mastectomies and chemotherapy with chronic lymphedema of the left arm. 7. Obstructive sleep apnea. Currently ventilated. 8. History of seizure disorder. Valproic acid. Deep vein thrombosis (DVT) prophylaxis with subcutaneous Lovenox. Will step down to PCU VS,Fishbone, I+O VS, Fishbone, I+O Laboratory Tests 03/14/19 03:50 Vital Signs Date Time Temp Pulse Resp B/P (MAP) Pulse Ox O2 Delivery O2 Flow Rate FiO2 03/14/19 09:12 83 03/14/19 09:00 21 122/66 (84) 94 Room Air 03/14/19 08:00 97.2 03/14/19 06:00 3.0 03/13/19 12:00 35 I&O- Last 24 Hours up to 6 AM 03/14/19 06:00 Intake Total 1650 ml Output Total 4175 ml Balance -2525 ml JOSEPH NEWTON MD Mar 14, 2019 10:35
[2019-03-14] MEDS: LATANOPROST 0.005% OPHTH SOLN 2.5 ML OU SCH (20:13)
[2019-03-14] MEDS: VALPROATE SOD INJ 750 MG in D5W 50 ML IV SCH (20:13)
[2019-03-14] MEDS: MOXIFLOXACIN HCL 400 MG in IV 1 EA IV SCH (21:16)
[2019-03-15] VITALS: BP 133/68
[2019-03-15] MEDS: IPRATROPIUM 0.5MG/ALBUTEROL 2.5MG INH SOL UD 3ML (DUONEB)(J7620) NEB SCH ×4 (01:52→19:53)
[2019-03-15 04:00] VITALS: BP 140/70
[2019-03-15 04:49] LABS: HEMATOCRIT 30.4 % (36.0-47.0); MEAN CORPUSCULAR HEMOGLOBIN 29.7 pg (27.0-33.0); MEAN CORPUSCULAR HGB CONC 32.9 g/dl (32.0-36.5); MEAN CORPUSCULAR VOLUME 90.2 fl (80.0-96.0); PLATELET COUNT, AUTOMATED 232 10^3/uL (150-450); RED BLOOD COUNT 3.37 10^6/uL (4.00-5.40); WHITE BLOOD COUNT 14.5 10^3/uL (4.0-10.0)
[2019-03-15 05:11] LABS: BLOOD UREA NITROGEN 14 MG/DL (7-18); CALCIUM LEVEL 7.8 MG/DL (8.5-10.1); CARBON DIOXIDE LEVEL 34 MEQ/L (21-32); CHLORIDE LEVEL 101 MEQ/L (98-107); CREATININE FOR GFR 0.52 MG/DL (0.55-1.30); GLOMERULAR FILTRATION RATE > 60.0 (>51); GLUCOSE, FASTING 107 MG/DL (70-100); POTASSIUM SERUM 3.5 MEQ/L (3.5-5.1); SODIUM LEVEL 140 MEQ/L (136-145)
[2019-03-15] MEDS: LEVOTHYROXINE 50MCG TABLET (0.05MG) PO SCH (06:08)
[2019-03-15] MEDS: HumaLOG INSULIN (NovoLOG) PER UNIT SC SCH (07:30)
[2019-03-15 08:11] VITALS: BP 140/68
[2019-03-15] MEDS: CitaloPRAM (CeleXA) 20 MG TAB PO SCH (10:45)
[2019-03-15] MEDS: BENZTROPINE 2 MG TAB PO SCH ×2 (10:45→20:10)
[2019-03-15] MEDS: BRIMONIDINE 0.2% OU SCH ×2 (10:46→20:11)
[2019-03-15] MEDS: ENOXAPARIN 40 MG/0.4 ML SYRINGE (J1650) SC SCH (10:46)
[2019-03-15] MEDS: EYE OU SCH ×2 (10:46→20:11)
[2019-03-15] MEDS: predniSONE 10 MG TAB PO SCH (10:46)
--- NOTE | 2019-03-15 11:06 | IPNPDOC ---
Text Note Date of Service The patient was seen on 03/15/19. NOTE She was seen and examined by me this morning. S/P extubation on 03/13/19. No overnight events. Examination GENERAL: Able to follow commands. having breakfast Central line clean, nonerythematous and nontender. LUNGS: Diminished Coarse rhonchi bilaterally. HEART: S1, S2. Sinus rhythm. ABDOMEN: Soft, nontender, nondistended. EXTREMITIES: No edema. Neuro: Normal Microbiology: Mycoplasma on respiratory panel. Two sets of blood cultures negative. Chest x-ray on 03/11/2019 showed endotracheal tube, nasogastric tube, right internal jugular venous line at SVC. Left lower lobe opacity consistent with atelectasis. Left pleural effusion. Improved left upper lobe with perihilar consolidation persisting. Right basilar infiltrate. ASSESSMENT AND PLAN: This is a 54-year-old female with a history of bipolar, hypothyroidism, breast cancer status post bilateral mastectomy, seizure disorder, obstructive sleep apnea on continuous positive airway pressure (CPAP) who presented with a 3-day history of acute encephalopathy with subjective fever, chills, cough with yellow sputum. Seen in urgent care with negative flu and Streptococcus screen. Chest x-ray was negative at that time. She became more lethargic and was brought into the emergency room and was found to be hypoxic. Despite nonrebreather and Vapotherm, failed on BiPAP and was subsequently intubated and now exbubated on 03/13/19 ACUTE ISSUES: 1. Acute hypoxic respiratory failure secondary to extensive pneumonia with mycoplasma, She is currently on Avelox. Taper steriods 2. Septic shock requiring vasopressor therapy . Now improved .off Levofed drip 3. Mycoplasma pneumoniae. Currently on Avelox. Respiratory panel showed mycoplasma pneumoniae. Blood cultures are still negative. 4. Hyponatremia. Improving Appears to be stable at this time. 5. Bipolar disorder. On valproic acid. 6. History of breast cancer. Status post bilateral mastectomies and chemotherapy with chronic lymphedema of the left arm. 7. Obstructive sleep apnea. Currently ventilated. 8. History of seizure disorder. Valproic acid. Deep vein thrombosis (DVT) prophylaxis with subcutaneous Lovenox. Will step down to PCU Disposition likely home in the next 24 hours VS,Pattiee, I+O VS, Fishbone, I+O Laboratory Tests 03/15/19 04:35 Vital Signs Date Time Temp Pulse Resp B/P (MAP) Pulse Ox O2 Delivery O2 Flow Rate FiO2 03/15/19 04:00 97.9 65 16 140/70 (93) 93 Nasal Cannula 1.0 03/13/19 12:00 35 I&O- Last 24 Hours up to 6 AM 03/15/19 06:00 Intake Total 1617.5 ml Output Total 1950 ml Balance -332.5 ml JOSEPH NEWTON MD Mar 15, 2019 11:06
[2019-03-15 12:06] VITALS: BP 140/71
[2019-03-15 15:56] VITALS: BP 127/75
[2019-03-15] MEDS: MOXIFLOXACIN HCL 400 MG in IV 1 EA IV SCH (20:10)
[2019-03-15] MEDS: LATANOPROST 0.005% OPHTH SOLN 2.5 ML OU SCH (20:10)
[2019-03-15 20:20] VITALS: BP 125/72
[2019-03-15] MEDS: VALPROATE SOD INJ 750 MG in D5W 50 ML IV SCH (21:43)
[2019-03-16] MEDS: IPRATROPIUM 0.5MG/ALBUTEROL 2.5MG INH SOL UD 3ML (DUONEB)(J7620) NEB SCH ×2 (01:46→08:00)
[2019-03-16 04:21] VITALS: BP 141/67
[2019-03-16 05:01] LABS: HEMATOCRIT 31.8 % (36.0-47.0); HEMOGLOBIN 10.6 g/dl (12.0-15.5); MEAN CORPUSCULAR HEMOGLOBIN 29.9 pg (27.0-33.0); MEAN CORPUSCULAR HGB CONC 33.3 g/dl (32.0-36.5); MEAN CORPUSCULAR VOLUME 89.6 fl (80.0-96.0); PLATELET COUNT, AUTOMATED 250 10^3/uL (150-450); RED BLOOD COUNT 3.55 10^6/uL (4.00-5.40); WHITE BLOOD COUNT 13.8 10^3/uL (4.0-10.0)
[2019-03-16 05:22] LABS: BLOOD UREA NITROGEN 13 MG/DL (7-18); CALCIUM LEVEL 8.1 MG/DL (8.5-10.1); CARBON DIOXIDE LEVEL 33 MEQ/L (21-32); CHLORIDE LEVEL 100 MEQ/L (98-107); CREATININE FOR GFR 0.62 MG/DL (0.55-1.30); GLOMERULAR FILTRATION RATE > 60.0 (>51); GLUCOSE, FASTING 108 MG/DL (70-100); POTASSIUM SERUM 3.6 MEQ/L (3.5-5.1); SODIUM LEVEL 140 MEQ/L (136-145)
[2019-03-16] MEDS: LEVOTHYROXINE 50MCG TABLET (0.05MG) PO SCH (05:44)
[2019-03-16 08:02] VITALS: BP 142/72
[2019-03-16] MEDS: BRIMONIDINE 0.2% OU SCH (08:04)
[2019-03-16] MEDS: BENZTROPINE 2 MG TAB PO SCH (08:04)
[2019-03-16] MEDS: predniSONE 10 MG TAB PO SCH (08:04)
[2019-03-16] MEDS: CitaloPRAM (CeleXA) 20 MG TAB PO SCH (08:04)
[2019-03-16] MEDS: EYE OU SCH (08:04)
[2019-03-16] MEDS: ENOXAPARIN 40 MG/0.4 ML SYRINGE (J1650) SC SCH (08:05)
[2019-03-16] MEDS ORDERED: PANTOPRAZOLE 40MG TAB (PROTONIX) PO SCH (09:00)
--- NOTE | 2019-03-16 11:32 | DS.PDOC ---
Discharge Summary General Date of Admission Mar 10, 2019 at 15:58 Date of Discharge 03/16/19 Discharge Summary Chief complaints: Fever and altered mental status Final diagnosis Mycoplasma pneumonia Metabolic encephalopathy History of present illness and Hospital course This is a 54-year-old female with a history of bipolar, hypothyroidism, breast cancer status post bilateral mastectomy, seizure disorder, obstructive sleep apnea on continuous positive airway pressure (CPAP) who presented with a 3-day history of acute encephalopathy with subjective fever, chills, cough with yellow sputum. Seen in urgent care with negative flu and Streptococcus screen. Chest x-ray was negative at that time. She became more lethargic and was brought into the emergency room and was found to be hypoxic. Despite nonrebreather and Vapotherm, failed on BiPAP and was subsequently intubated and now exbubated on 03/13/19. The patient was continued on moxifloxacin. States that also put on tapering dose. All the cultures came out to be negative. She is at her baseline, saturating while even on room air and along with that. White disease, stable. The patient has been completely optimized for discharge and has completed the 7 day course of IV antibiotics. She has been advised to follow with PCP in 1 week as well as pulmonary in 8 weeks. Examination GENERAL: Able to follow commands. having breakfast Central line clean, nonerythematous and nontender. LUNGS: Diminished but clear to auscultation HEART: S1, S2. Sinus rhythm. ABDOMEN: Soft, nontender, nondistended. EXTREMITIES: No edema. Neuro: Normal Medications. As per discharge reconciliation medication list Activity as tolerated Diet. 2 g sodium diet Follow-up appointments. PCP in 1 week, pulmonary 8 weeks Condition on discharge. Patient is medically optimized for discharge Discharge disposition: Home Total time spent on this discharge including coordination of care, review of chart documentation and extubation contact is around 35 minutes Vital Signs/I&Os Vital Signs Date Time Temp Pulse Resp B/P (MAP) Pulse Ox O2 Delivery O2 Flow Rate FiO2 03/16/19 08:02 96.6 89 18 142/72 (95) 99 Room Air 03/15/19 08:11 03/13/19 12:00 35 I&O- Last 24 Hours up to 6 AM 03/16/19 06:00 Intake Total 3258 ml Output Total 4400 ml Balance -1142 ml Laboratory Data Labs 24H Laboratory Tests 2 03/16/19 04:51: Nucleated Red Blood Cells % (auto) 0.3H, Anion Gap 7L, Glomerular Filtration Rate > 60.0, Calcium Level 8.1L CBC/BMP Laboratory Tests 03/16/19 04:51 Microbiology Microbiology 03/11/19 Gram Stain - Final, Complete 03/11/19 Sputum Culture - Final, Complete 03/10/19 Blood Culture - Final, Complete NO GROWTH AFTER 5 DAYS 03/10/19 Blood Culture - Final, Complete NO GROWTH AFTER 5 DAYS 03/10/19 Respiratory Virus Panel (PCR) ([facility]) - Final, Complete Mycoplasma Pneumoniae Discharge Medications Scheduled Aripiprazole (Aripiprazole) 10 Mg Tablet, 5 MG PO DAILY, (Reported) Benztropine Mesylate (Benztropine Mesylate) 2 Mg Tab, 2 MG PO BID, (Reported) Brimonidine Tartrate (Brimonidine Tartrate) 0.2 % Francoise, 1 DROP OU BID, (Reported) MORNING AND LATE AFTERNOON Calcium Carbonate (Calcium) 600 Mg Tab, 600 MG PO BID, (Reported) Citalopram Hydrobromide (Citalopram HBr) 20 Mg Tab, 20 MG PO DAILY, (Reported) Divalproex Sodium (Depakote ER) 250 Mg Tab, 750 MG PO QHS, (Reported) Ergocalciferol (Vitamin D2) (Vitamin D2) 400 Unit Tablet, 400 UNIT PO QAM, (Reported) Latanoprost (Xalatan) 0.005 % Francoise, 1 DROP OU QPM, (Reported) Levothyroxine Sodium (Levothyroxine Sodium) 25 Mcg Tab, 50 MCG PO DAILY, (Reported) Multivitamin (Multivitamins) 1 Each Capsule, 1 CAP PO DAILY, (Reported) Ranitidine HCl (Ranitidine HCl) 150 Mg Cap, 150 MG PO BID, (Reported) Scheduled PRN Albuterol Sulfate (Ventolin Hfa) 18 Gm Hfa.aer.ad, 2 PUFF INH Q4H PRN for wheezing, (Reported) Fluocinolone Acetonide Oil (Fluocinolone Acetonide Oil) 0.01 % Oil, 0.01 % OT [id number] PRN for ITCHING, (Reported) Miscellaneous Medications [Comment] , (Reported) PT UNRESPONSIVE MED REC DONE WITH LIST FAMILY HAD WELL EXTERNAL MED HISTORY Allergies Coded Allergies: tetracycline (Verified Allergy, Intermediate, Itching, 08/24/18) vancomycin (Verified Allergy, Intermediate, tongue tingling, scratchy throat, 08/24/18) Penicillins (Verified Adverse Reaction, Intermediate, Severe Diarrhea, 08/24/18) dexamethasone (Verified Adverse Reaction, Mild, Heart Racing, 08/24/18) miconazole (Verified Adverse Reaction, Unknown, Severe Burning, 08/24/18) prochlorperazine (Verified Adverse Reaction, Unknown, Sensory Problems, 08/24/18) thiethylperazine (Verified Adverse Reaction, Unknown, Hallucinations, 08/24/18) JOSEPH NEWTON MD Mar 16, 2019 11:32
== END 2019-03-16 12:23 | disposition home or self-care (01) | DRG 720 ==
LOC: EDBD 14:46 → EDUNIT# 14:46 → M ED 14:46 → M ED INP 15:58 → M ICU 18:24
PROVIDERS: ADMIT Family Medicine; ATTEND Internal Medicine
PROC: 0BH17EZ Insertion of Endotracheal Airway into Trachea, Via Natural or Artificial Opening (ICD-10-PCS; principal; 2019-03-10)
PROC: 5A1945Z Respiratory Ventilation, 24-96 Consecutive Hours (ICD-10-PCS; 2019-03-10)
PROC: 02HV33Z Insertion of Infusion Device into Superior Vena Cava, Percutaneous Approach (ICD-10-PCS; 2019-03-10)
DX: A41.9 Sepsis, unspecified organism (principal); J96.01 Acute respiratory failure with hypoxia; R65.21 Severe sepsis with septic shock; G93.41 Metabolic encephalopathy; J15.7 Pneumonia due to Mycoplasma pneumoniae; E87.1 Hypo-osmolality and hyponatremia; E88.09 Other disorders of plasma-protein metabolism, not elsewhere classified; E03.9 Hypothyroidism, unspecified; J45.909 Unspecified asthma, uncomplicated; R68.0 Hypothermia, not associated with low environmental temperature; G40.909 Epilepsy, unspecified, not intractable, without status epilepticus; G47.33 Obstructive sleep apnea (adult) (pediatric); K21.9 Gastro-esophageal reflux disease without esophagitis; Z85.3 Personal history of malignant neoplasm of breast; Z90.13 Acquired absence of bilateral breasts and nipples; Z79.899 Other long term (current) drug therapy; Z88.0 Allergy status to penicillin; Z88.8 Allergy status to other drugs, medicaments and biological substances; Z88.1 Allergy status to other antibiotic agents; R73.9 Hyperglycemia, unspecified

== ENCOUNTER → 2019-03-30 | Outpatient (CLI) | payer OTHER ==
[~2019-03-30] MED LIST changes: +ARIP1TAB PO; +COMMENT; +VENTAER INH
[2019-03-30 15:48] LABS: BASO % 0.2 % (0.0-1.0); EOS # 0.1 10^3/uL (0.0-0.5); EOS % 1.6 % (0.0-3.0); HEMATOCRIT 33.8 % (36.0-47.0); HEMOGLOBIN 11.1 g/dl (12.0-15.5); LYMPH # 1.9 10^3/uL (1.5-5.0); LYMPH % 37.5 % (24.0-44.0); MEAN CORPUSCULAR HEMOGLOBIN 29.2 pg (27.0-33.0); MEAN CORPUSCULAR HGB CONC 32.8 g/dl (32.0-36.5); MEAN CORPUSCULAR VOLUME 88.9 fl (80.0-96.0); MONO # 0.7 10^3/uL (0.0-0.8); MONO % 12.9 % (0.0-5.0); NEUTROPHILS # 2.4 10^3/uL (1.5-8.5); NEUTROPHILS % 47.6 % (36.0-66.0); PLATELET COUNT, AUTOMATED 202 10^3/uL (150-450); WHITE BLOOD COUNT 5.1 10^3/uL (4.0-10.0)
[2019-03-30 16:12] LABS: BLOOD UREA NITROGEN 13 MG/DL (7-18); CALCIUM LEVEL 8.8 MG/DL (8.5-10.1); CARBON DIOXIDE LEVEL 30 MEQ/L (21-32); CHLORIDE LEVEL 99 MEQ/L (98-107); CREATININE FOR GFR 0.86 MG/DL (0.55-1.30); GLOMERULAR FILTRATION RATE > 60.0 (>51); GLUCOSE, FASTING 119 MG/DL (70-100); POTASSIUM SERUM 4.7 MEQ/L (3.5-5.1); SODIUM LEVEL 136 MEQ/L (136-145)
== END ==
LOC: M LAB 15:04
PROVIDERS: ATTEND Family Medicine
DX: J18.9 Pneumonia, unspecified organism (principal)

== ENCOUNTER → 2019-08-15 | Outpatient (CLI) | payer OTHER ==
--- NOTE | 2019-08-15 16:10 | REP ---
Clinical: Cough. Flu. Technique: PA and lateral. Comparison: 03/08/2019. Findings: Mediastinum and cardiac silhouette are normal. The lung de leon demonstrate mild chronic-appearing changes. No discrete focal consolidation, effusion, or pneumothorax. A very subtle vague area of opacity in the left upper lung zone cannot be excluded and should be correlated with auscultation. Skeletal structures are intact. Left axillary node dissection noted. Impression: No focal consolidation or effusion. Subtle vague area of opacity in the left upper lung zone cannot be excluded. Correlation is recommended and if necessary chest CT should be considered for further investigation. Electronically Signed by Hipolito Lora MD 08/15/2019 04:02 P
== END ==
LOC: M RAD 15:42
PROVIDERS: ATTEND Physician Assistant Medical
DX: R05 Cough (principal); J10.1 Influenza due to other identified influenza virus with other respiratory manifestations

== ENCOUNTER → 2019-08-15 | Outpatient (CLI) | payer OTHER ==
[2019-08-15 13:26] LABS: INFLUENZA A AMPLIFICATION POSITIVE (NEGATIVE); INFLUENZA B AMPLIFICATION NEGATIVE (NEGATIVE)
== END ==
LOC: M LABSMTC 11:16
PROVIDERS: ATTEND Family Medicine
DX: Z11.59 Encounter for screening for other viral diseases (principal); Z20.820 Contact with and (suspected) exposure to varicella

== ENCOUNTER 2019-10-12 10:36 | Emergency (ER) | payer MEDICAID, OTHER ==
[~2019-10-12] VITALS: Ht 170.2 cm; Wt 99.0 kg
[2019-10-12] MEDS ORDERED: FAMO1TAB11 (11:01)
[2019-10-12] MEDS ORDERED: LEVO50TA5 (11:01)
[2019-10-12] MEDS ORDERED: TIMO0.5S29 (11:01)
[2019-10-12] MEDS ORDERED: NS 1,000 ML IV ONE (11:45)
[2019-10-12 13:02] LABS: BASO % 0.3 % (0.0-1.0); EOS # 0.2 10^3/uL (0.0-0.5); EOS % 1.9 % (0.0-3.0); HEMATOCRIT 38.7 % (36.0-47.0); HEMOGLOBIN 12.8 g/dl (12.0-15.5); LYMPH # 2.4 10^3/uL (1.5-5.0); LYMPH % 31.1 % (24.0-44.0); MEAN CORPUSCULAR HEMOGLOBIN 28.8 pg (27.0-33.0); MEAN CORPUSCULAR HGB CONC 33.1 g/dl (32.0-36.5); MONO # 1.3 10^3/uL (0.0-0.8); MONO % 15.9 % (0.0-5.0); NEUTROPHILS % 50.5 % (36.0-66.0); PLATELET COUNT, AUTOMATED 185 10^3/uL (150-450); RED BLOOD COUNT 4.45 10^6/uL (4.00-5.40); WHITE BLOOD COUNT 7.9 10^3/uL (4.0-10.0)
[2019-10-12] MEDS: GASTROGRAFIN SOLUTION 30ML PO SCH (13:10)
[2019-10-12 13:22] LABS: ALBUMIN 3.7 GM/DL (3.2-5.2); BILIRUBIN,DIRECT 0.2 MG/DL (0.0-0.2); BILIRUBIN,TOTAL 0.7 MG/DL (0.2-1.0); TOTAL PROTEIN 7.7 GM/DL (6.4-8.2)
[2019-10-12] MEDS ORDERED: ISOVUE-370 76% 100ML VIAL As Ordered ONE (14:19)
[2019-10-12 14:57] VITALS: BP 121/57
--- NOTE | 2019-10-12 15:11 | REP ---
CT ABDOMEN AND PELVIS WITH ORAL AND IV CONTRAST: TECHNIQUE: Axial contrast enhanced images from the lung bases to the pubic symphysis using 100 mL Isovue-370 intravenous contrast material with multiplanar reformations. Visualized lung bases demonstrate no infiltrate. There is diffuse fatty infiltration of the liver. No liver mass is seen. Spleen is normal in size with no intrinsic abnormality. The adrenal glands are normal. The pancreas demonstrates no mass. The kidneys are unremarkable. There is no hydronephrosis. There is no abdominal aortic aneurysm. There is no adenopathy, free air or free fluid. There is diffuse thickening of the left colon consistent with colitis. There is no other evidence of bowel wall thickening. Urinary bladder is not well distended and not well evaluated. The patient has had prior appendectomy and hysterectomy. IMPRESSION: Diffuse colitis of the left colon. Diffuse fatty infiltration of the liver. No free air or free fluid. No abscess. Electronically Signed by Kana Rodgers MD 10/12/2019 03:37 P
== END 2019-10-12 15:01 | disposition home or self-care (01) ==
LOC: M ED 10:36
DX: K51.90 Ulcerative colitis, unspecified, without complications (principal); R10.9 Unspecified abdominal pain; E03.9 Hypothyroidism, unspecified; Z85.3 Personal history of malignant neoplasm of breast; Z88.0 Allergy status to penicillin; Z88.1 Allergy status to other antibiotic agents; Z88.8 Allergy status to other drugs, medicaments and biological substances
CPT/HCPCS: 36415; 74177; 80047; 80076; 83690; 85025; 96360; 99284; Q9963; Q9967

== ENCOUNTER → 2019-10-27 | Outpatient (CLI) | payer OTHER, MEDICAID ==
[~2019-10-27] MED LIST changes: +FAMO1TAB11; +LEVO50TA5; +TIMO0.5S29
== END ==
LOC: M LABSMTC 10:13
PROVIDERS: ATTEND Anesthesiology
DX: Z01.818 Encounter for other preprocedural examination (principal); Z11.59 Encounter for screening for other viral diseases
CPT/HCPCS: C9803; U0003

== ENCOUNTER 2019-10-30 06:45 | Day surgery (SDC) | payer OTHER ==
[~2019-10-30] VITALS: Ht 170.2 cm; Wt 97.1 kg
[~2019-10-30 06:45] MED LIST changes: +NS 1,000 ML IV ONE
[2019-10-30] MEDS ORDERED: LIDOCAINE 2% 100MG/5ML SDV (FOR ANES.) As Ordered ONE (07:10)
[2019-10-30] MEDS ORDERED: propofoL 200 MG/20 ML VIAL As Ordered ONE (07:10)
--- NOTE | 2019-10-30 07:55 | ROOR ---
Patient Name: Zaynab Tejada Procedure Date: 10/30/2019 7:29 AM Date of : 1965 Age: 54 Room: [facility] Gender: Female Note Status: Finalized Procedure: Colonoscopy Indications: Abnormal CT of the GI tract, Follow-up of ischemic colitis, (history of constipation/impaction) Providers: Marco FRANCIS MD Referring MD: Jason Parra MD Requesting Provider: Medicines: Monitored Anesthesia Care Complications: No immediate complications. Procedure: Pre-Anesthesia Assessment: - The heart rate, respiratory rate, oxygen saturations, blood pressure, adequacy of pulmonary ventilation, and response to care were monitored throughout the procedure. The Colonoscope was introduced through the anus and advanced to 6 cm into the ileum. The colonoscopy was performed without difficulty. The patient tolerated the procedure well. The quality of the bowel preparation was good. Findings: The perianal and digital rectal examinations were normal. Two sessile polyps were found in the splenic flexure. The polyps were diminutive in size. These polyps were removed with a cold snare. Resection and retrieval were complete. The colon (entire examined portion) was redundant. Retroflexion in the right colon was performed. The exam was otherwise normal throughout the examined colon. The terminal ileum appeared normal. Biopsies for histology were taken with a cold forceps from the entire colon for evaluation of microscopic colitis. Impression: - Two diminutive polyps at the splenic flexure, removed with a cold snare. Resected and retrieved. - Redundant colon. - The colon is otherwise normal. (colitis has resolved) - The examined portion of the ileum was normal. - Biopsies were taken with a cold forceps from the entire colon for evaluation of colitis. Recommendation: - Repeat colonoscopy in 5 years for surveillance. Marco Francis MD Marco FRANCIS MD 10/30/2019 7:54:57 AM Electronically signed by Marco FRANCIS MD Number of Addenda: 0 Note Initiated On: 10/30/2019 7:29 AM Estimated Blood Loss: Estimated blood loss: none.
[2019-10-30 08:15] VITALS: BP 120/73
== END 2019-10-30 08:58 | disposition home or self-care (01) ==
LOC: M OPP 06:45
PROVIDERS: ATTEND Internal Medicine Gastroenterology
DX: K63.5 Polyp of colon (principal); K55.9 Vascular disorder of intestine, unspecified; Q43.8 Other specified congenital malformations of intestine; R93.3 Abnormal findings on diagnostic imaging of other parts of digestive tract; Z79.899 Other long term (current) drug therapy; Z88.0 Allergy status to penicillin; Z88.1 Allergy status to other antibiotic agents; Z88.8 Allergy status to other drugs, medicaments and biological substances

== ENCOUNTER → 2019-11-29 | Outpatient (CLI) | payer OTHER ==
[~2019-11-29] MED LIST changes: +ARIP1TAB4 PO; +CALC-211 PO; -CALCTAB7 PO; +LEVO75TA4 PO; -NS 1,000 ML IV ONE
--- NOTE | 2019-11-29 16:02 | REP ---
REASON FOR EXAM: History of mycoplasma pneumonia. COMPARISON: Multiple, the latest 08/15/2019. The vague area of opacification is seen in the left upper lobe is unchanged and may, in fact, at least in part to be artifactual. No other abnormal lung opacities are present. The heart is not enlarged and the pleural angles are sharp. The osseous structures are stable and intact. IMPRESSION: Persistent left upper lobe opacity as described above. If necessary obtain chest CT. Electronically Signed by Gerald Gabriel DO 11/30/2019 11:04 A
== END ==
LOC: M RAD 11:02
PROVIDERS: ATTEND Internal Medicine Pulmonary Disease
DX: J15.7 Pneumonia due to Mycoplasma pneumoniae (principal)

== ENCOUNTER → 2020-01-12 | Outpatient (CLI) | payer OTHER ==
--- NOTE | 2020-02-14 10:26 | REP ---
CT OF THE CHEST WITHOUT IV CONTRAST: Delay in reporting results from hospital computer system malfunction from malware / ransomware. HISTORY: Mycoplasma pneumonia. COMPARISON: PA and lateral plain film study dated 11/29/19. There are no comparison chest CT studies. Patient has additional clinical history of breast carcinoma and bilateral mastectomies as well as hysterectomy. FINDINGS: There are bilateral mastectomies. There are numerous surgical clips in the left axilla. No surgical clips in the right axilla. There are no infiltrates. There are no pleural effusions. There is very subtle subpleural fibrosis anteriorly in the left upper lobe. This could represent post radiation change. The lung de leon are otherwise clear. There are no nodules or masses. There are no infiltrates or pleural effusions. There is no mediastinal adenopathy. There is no axillary adenopathy. In the absence of IV contrast, the study is insensitive for hilar adenopathy. The unenhanced thoracic aorta is unremarkable. Cardiac size is normal. The visualized upper abdominal contents are unremarkable. There are no adrenal masses. There are no lytic, blastic or destructive skeletal changes. IMPRESSION: There are no infiltrates, pleural effusions, nodules or masses. There is no adenopathy. There is subtle subpleural fibrosis anteriorly in the left upper lobe, possibly post radiation change. There are bilateral mastectomies and there are surgical clips in the left axilla. [facility]
== END ==
LOC: M RAD 12:37
PROVIDERS: ATTEND Internal Medicine Pulmonary Disease
DX: R91.8 Other nonspecific abnormal finding of lung field (principal); J15.7 Pneumonia due to Mycoplasma pneumoniae

== ENCOUNTER → 2022-02-18 | Outpatient (CLI) | payer BC, OTHER ==
[~2022-02-18] MED LIST changes: +ALPH0.156; +ATOR1TAB21; +BENZ-52; +KP F1200 PO; +MULT1TAB8 PO
[2022-02-18 11:32] LABS: BASO % 0.2 % (0.0-1.0); EOS # 0.2 10^3/uL (0.0-0.5); EOS % 1.8 % (0.0-3.0); HEMATOCRIT 37.4 % (36.0-47.0); HEMOGLOBIN 12.4 g/dl (12.0-15.5); LYMPH # 1.9 10^3/uL (1.5-5.0); LYMPH % 23.6 % (24.0-44.0); MEAN CORPUSCULAR HEMOGLOBIN 29.5 pg (27.0-33.0); MEAN CORPUSCULAR HGB CONC 33.2 g/dl (32.0-36.5); MONO # 0.9 10^3/uL (0.0-0.8); MONO % 10.7 % (2.0-8.0); NEUTROPHILS # 5.2 10^3/uL (1.5-8.5); NEUTROPHILS % 63.5 % (36.0-66.0); PLATELET COUNT, AUTOMATED 170 10^3/uL (150-450); WHITE BLOOD COUNT 8.1 10^3/uL (4.0-10.0)
[2022-02-18 12:19] LABS: ALBUMIN 3.6 GM/DL (3.2-5.2); ALT/SGPT 25 U/L (12-78); BILIRUBIN,TOTAL 0.5 MG/DL (0.2-1.0); BLOOD UREA NITROGEN 11 MG/DL (7-18); CALCIUM LEVEL 9.3 MG/DL (8.5-10.1); CARBON DIOXIDE LEVEL 31 MEQ/L (21-32); CHLORIDE LEVEL 99 MEQ/L (98-107); GLOMERULAR FILTRATION RATE > 60.0 (>51); GLUCOSE, FASTING 108 MG/DL (70-100); POTASSIUM SERUM 3.8 MEQ/L (3.5-5.1); SODIUM LEVEL 134 MEQ/L (136-145); TOTAL PROTEIN 7.5 GM/DL (6.4-8.2)
[2022-02-18 13:34] LABS: CA15-3 ANTIGEN 7.5 U/ML (<32.4)
== END ==
LOC: M LAB 10:48
PROVIDERS: ATTEND Nurse Practitioner Adult Health
DX: C50.919 Malignant neoplasm of unspecified site of unspecified female breast (principal)

== ENCOUNTER → 2022-04-15 | Outpatient (CLI) | payer BC, OTHER ==
[~2022-04-15] MED LIST changes: +CEFD300C41; +ECOT81TA5 PO; +ROSU5TAB5
[2022-04-15 14:22] LABS: FREE T4 1.12 NG/DL (0.89-1.76); THYROID STIMULATING HORMONE 0.561 uIU/ML (0.55-4.78)
[2022-04-15 18:31] LABS: HEMOGLOBIN A1c 5.9 % (4.0-6.0)
== END ==
LOC: M PLALAB 09:57
PROVIDERS: ATTEND Family Medicine
DX: E03.9 Hypothyroidism, unspecified (principal); R73.01 Impaired fasting glucose

== ENCOUNTER → 2022-07-31 | Outpatient (CLI) | payer BC, OTHER ==
[~2022-07-31] MED LIST changes: -BENZ-52; +BENZ1TAB5
== END ==
LOC: M WHC 08:39
PROVIDERS: ATTEND Family Medicine
DX: M85.89 Other specified disorders of bone density and structure, multiple sites (principal); Z79.899 Other long term (current) drug therapy

== ENCOUNTER → 2023-02-24 | Outpatient (CLI) | payer OTHER, BC ==
[~2023-02-24] MED LIST changes: -ALPH0.156; +ALPH0.156 OU; +AMBI5TAB PO; +BENZ0.5T2 PO; +BENZ2TAB48 PO; -BENZ2TAB5 PO; +CALCCAP4 PO; -FAMO1TAB11; +FAMO1TAB11 PO; +LATU20TA PO; +OMEGCAP9 PO; -ROSU5TAB5; +ROSU5TAB5 PO; +SYNT75TA PO; +TIMO0.5S20 OU; -TIMO0.5S29
[2023-02-24 12:43] LABS: BASO % 0.3 % (0.0-1.0); EOS # 0.1 10^3/uL (0.0-0.5); EOS % 1.9 % (0.0-3.0); HEMATOCRIT 37.9 % (36.0-47.0); HEMOGLOBIN 12.5 g/dl (12.0-15.5); LYMPH # 1.9 10^3/uL (1.5-5.0); LYMPH % 29.5 % (24.0-44.0); MEAN CORPUSCULAR HEMOGLOBIN 29.6 pg (27.0-33.0); MEAN CORPUSCULAR VOLUME 89.6 fl (80.0-96.0); MONO # 0.6 10^3/uL (0.0-0.8); MONO % 9.9 % (2.0-8.0); NEUTROPHILS # 3.6 10^3/uL (1.5-8.5); NEUTROPHILS % 57.9 % (36.0-66.0); PLATELET COUNT, AUTOMATED 198 10^3/uL (150-450); RED BLOOD COUNT 4.23 10^6/uL (4.00-5.40); WHITE BLOOD COUNT 6.3 10^3/uL (4.0-10.0)
[2023-02-24 12:51] LABS: ALBUMIN 3.7 G/DL (3.2-5.2); ALKALINE PHOSPHATASE 73 U/L (46-116); ALT/SGPT 41 U/L (7.0-40); AST/SGOT 18 U/L (<34); BILIRUBIN,TOTAL 0.7 MG/DL (0.3-1.2); BLOOD UREA NITROGEN 13 MG/DL (9-23); CALCIUM LEVEL 9.6 MG/DL (8.5-10.1); CARBON DIOXIDE LEVEL 32 MMOL/L (20-31); CHLORIDE LEVEL 104 MMOL/L (98-107); GLOMERULAR FILTRATION RATE > 60.0 (>51); GLUCOSE, FASTING 126 MG/DL (60-100); POTASSIUM SERUM 3.9 MMOL/L (3.5-5.1); SODIUM LEVEL 141 MMOL/L (136-145); TOTAL PROTEIN 7.1 G/DL (5.7-8.2)
== END ==
LOC: M WUC 09:51
PROVIDERS: ATTEND Internal Medicine Medical Oncology
DX: Z85.3 Personal history of malignant neoplasm of breast (principal)

== ENCOUNTER → 2023-05-05 | Outpatient (CLI) | payer BC, OTHER ==
[~2023-05-05] MED LIST changes: +ABIL1TAB13 PO; +BRIM5DRO4 OU; +CEFD1CAP9; -CEFD300C41; +D 50CAP3 PO
[2023-05-05 11:55] LABS: BASO % 0.4 % (0.0-1.0); EOS # 0.1 10^3/uL (0.0-0.5); HEMATOCRIT 40.1 % (36.0-47.0); HEMOGLOBIN 13.2 g/dl (12.0-15.5); LYMPH % 35.6 % (24.0-44.0); MEAN CORPUSCULAR HEMOGLOBIN 29.2 pg (27.0-33.0); MEAN CORPUSCULAR HGB CONC 32.9 g/dl (32.0-36.5); MEAN CORPUSCULAR VOLUME 88.7 fl (80.0-96.0); MONO # 0.6 10^3/uL (0.0-0.8); MONO % 11.2 % (2.0-8.0); NEUTROPHILS # 2.8 10^3/uL (1.5-8.5); NEUTROPHILS % 50.6 % (36.0-66.0); PLATELET COUNT, AUTOMATED 177 10^3/uL (150-450); RED BLOOD COUNT 4.52 10^6/uL (4.00-5.40); WHITE BLOOD COUNT 5.5 10^3/uL (4.0-10.0)
[2023-05-05 12:27] LABS: ALBUMIN 3.9 G/DL (3.2-5.2); ALKALINE PHOSPHATASE 69 U/L (46-116); ALT/SGPT 33 U/L (7.0-40); AST/SGOT 17 U/L (<34); BILIRUBIN,TOTAL 0.8 MG/DL (0.3-1.2); BLOOD UREA NITROGEN 16 MG/DL (9-23); CALCIUM LEVEL 9.4 MG/DL (8.5-10.1); CARBON DIOXIDE LEVEL 30 MMOL/L (20-31); CHLORIDE LEVEL 103 MMOL/L (98-107); CHOLESTEROL LEVEL 178 MG/DL (<200); CHOLESTEROL RISK RATIO 3.89 (<5); CREATININE FOR GFR 0.62 MG/DL (0.55-1.30); FREE T3 3.2 PG/ML (2.3-4.2); FREE T4 0.86 NG/DL (0.89-1.76); GLOMERULAR FILTRATION RATE > 60.0 (>51); GLUCOSE, FASTING 108 MG/DL (60-100); HDL CHOLESTEROL 45.7 MG/DL (>40); LDL CHOLESTEROL 92.7 MG/DL (<100); NON-HDL-C 132.3 MG/DL; POTASSIUM SERUM 4.2 MMOL/L (3.5-5.1); PROGESTERONE < 0.21 NG/ML; SODIUM LEVEL 137 MMOL/L (136-145); THYROID STIMULATING HORMONE 1.136 uIU/ML (0.55-4.78); TOTAL 25(OH) VITAMIN D 60.7 NG/ML (20.0-100.0); TOTAL PROTEIN 7.4 G/DL (5.7-8.2); TRIGLYCERIDES LEVEL 198 MG/DL (<150); VITAMIN B12 LEVEL 666 PG/ML (211-911)
== END ==
LOC: M LAB 10:49
PROVIDERS: ATTEND Family Medicine
DX: R53.83 Other fatigue (principal); Z79.899 Other long term (current) drug therapy; E03.9 Hypothyroidism, unspecified; R73.01 Impaired fasting glucose

== ENCOUNTER 2023-10-12 07:08 | Day surgery (SDC) | payer BC ==
[~2023-10-12] VITALS: Ht 170.2 cm; Wt 106.5 kg
[~2023-10-12 07:08] MED LIST changes: +ROSU5TAB40 PO; -ROSU5TAB5 PO
[2023-10-12] MEDS: NS 1,000 ML IV ONE (07:53)
[2023-10-12] MEDS ORDERED: LIDOCAINE 2% 100MG/5ML SDV (FOR ANES.) As Ordered ONE (08:31)
[2023-10-12] MEDS ORDERED: GLYCOPYRROLATE INJ 0.2 MG/ML 2 ML VIAL As Ordered ONE (08:31)
[2023-10-12] MEDS ORDERED: propofoL 200 MG/20 ML VIAL As Ordered ONE (08:31)
[2023-10-12 09:14] VITALS: BP 123/56; O2SAT 96
== END 2023-10-12 09:14 | disposition home or self-care (01) ==
LOC: M OPP 07:08
PROVIDERS: ATTEND Internal Medicine Gastroenterology
DX: R19.4 Change in bowel habit (principal); K64.8 Other hemorrhoids; K21.9 Gastro-esophageal reflux disease without esophagitis; E03.9 Hypothyroidism, unspecified; E78.00 Pure hypercholesterolemia, unspecified; Z85.3 Personal history of malignant neoplasm of breast; Z79.899 Other long term (current) drug therapy; Z79.82 Long term (current) use of aspirin; Z92.21 Personal history of antineoplastic chemotherapy; Z92.3 Personal history of irradiation; Z90.710 Acquired absence of both cervix and uterus; Z90.49 Acquired absence of other specified parts of digestive tract; Z88.8 Allergy status to other drugs, medicaments and biological substances; Z88.0 Allergy status to penicillin; Z88.1 Allergy status to other antibiotic agents

== ENCOUNTER → 2023-11-05 | Outpatient (CLI) | payer BC ==
[~2023-11-05] MED LIST changes: +GASTROGRAFIN SOLUTION 30ML As Ordered ONE; +ISOVUE-370 76% 100ML VIAL As Ordered ONE
== END ==
LOC: M RAD 08:56
PROVIDERS: ATTEND Physician Assistant Medical
DX: R19.4 Change in bowel habit (principal); R10.30 Lower abdominal pain, unspecified; R11.2 Nausea with vomiting, unspecified
CPT/HCPCS: 74178; Q9963; Q9967

== ENCOUNTER → 2024-03-01 | Outpatient (CLI) | payer BC ==
[~2024-03-01] MED LIST changes: -GASTROGRAFIN SOLUTION 30ML As Ordered ONE; -ISOVUE-370 76% 100ML VIAL As Ordered ONE
[2024-03-01 14:08] LABS: BASO % 0.3 % (0.0-1.0); EOS # 0.2 10^3/uL (0.0-0.5); EOS % 3.2 % (0.0-3.0); HEMATOCRIT 37.7 % (36.0-47.0); HEMOGLOBIN 12.8 g/dl (12.0-15.5); LYMPH # 2.2 10^3/uL (1.5-5.0); MEAN CORPUSCULAR HEMOGLOBIN 29.8 pg (27.0-33.0); MEAN CORPUSCULAR VOLUME 87.9 fl (80.0-96.0); MONO # 0.8 10^3/uL (0.0-0.8); MONO % 11.8 % (2.0-8.0); NEUTROPHILS # 3.4 10^3/uL (1.5-8.5); NEUTROPHILS % 51.2 % (36.0-66.0); PLATELET COUNT, AUTOMATED 178 10^3/uL (150-450); RED BLOOD COUNT 4.29 10^6/uL (4.00-5.40); WHITE BLOOD COUNT 6.5 10^3/uL (4.0-10.0)
[2024-03-01 14:42] LABS: ALBUMIN 3.5 G/DL (3.2-5.2); ALKALINE PHOSPHATASE 82 U/L (46-116); ALT/SGPT 24 U/L (7.0-40); AST/SGOT < 8 U/L (<34); BILIRUBIN,TOTAL 0.5 MG/DL (0.3-1.2); BLOOD UREA NITROGEN 12 MG/DL (9-23); CALCIUM LEVEL 9.8 MG/DL (8.5-10.1); CARBON DIOXIDE LEVEL 29 MMOL/L (20-31); CHLORIDE LEVEL 104 MMOL/L (98-107); CREATININE FOR GFR 0.57 MG/DL (0.55-1.30); GLOMERULAR FILTRATION RATE > 60.0 (>51); GLUCOSE, FASTING 125 MG/DL (60-100); SODIUM LEVEL 140 MMOL/L (136-145); TOTAL PROTEIN 7.2 G/DL (5.7-8.2)
== END ==
LOC: M LAB 13:33
PROVIDERS: ATTEND Nurse Practitioner Adult Health
DX: C50.919 Malignant neoplasm of unspecified site of unspecified female breast (principal)

== ENCOUNTER → 2024-08-01 | Outpatient (CLI) | payer BC, OTHER ==
[~2024-08-01] MED LIST changes: -FLUO0.0119 OT; +FLUO0.0126 OT; -ROSU5TAB40 PO; +ROSU5TAB49 PO
== END ==
LOC: M WHC 09:50
PROVIDERS: ATTEND Obstetrics & Gynecology
DX: Z13.820 Encounter for screening for osteoporosis (principal)